=== PATIENT | male | born 1950 | race Caucasian/White ===

== ENCOUNTER 2020-12-10 10:11 | Observation (INO) | payer OTHER, MEDICARE ==
[~2020-12-10] VITALS: Ht 180.3 cm; Wt 114.3 kg
[2020-12-10 11:05] LABS: BASOPHILS ABSOLUTE AUTO 0.03 K/mm3 (0.00-0.23); BASOPHILS PERCENT AUTO 1 % (0-2); EOSINOPHILS PERCENT AUTO 0 % (0-6); Hematocrit 36.4 % (37.0-53.0); Hemoglobin 12.6 g/dL (13.5-17.5); IMMATURE GRAN PERCENT AUTO 3 % (0-1); LYMPHOCYTES ABSOLUTE AUTO 0.62 K/mm3 (0.84-5.20); LYMPHOCYTES PERCENT AUTO 16 % (21-46); MONOCYTES ABSOLUTE AUTO 0.55 K/mm3 (0.16-1.47); MONOCYTES PERCENT AUTO 14 % (4-13); Mean Corpuscular HGB 32.2 pg (26.0-34.0); Mean Corpuscular HGB Conc 34.6 g/dL (31.5-36.5); Mean Corpuscular Volume 93 fL (80-100); Mean Platelet Volume 12.2 fL (9.1-12.4); NEUTROPHILS ABSOLUTE AUTO 2.67 K/mm3 (1.96-9.15); NEUTROPHILS PERCENT AUTO 67 % (41-73); Platelet Count 72 K/mm3 (150-400); RDW Coefficient Variation 11.9 % (11.7-14.2); RDW Standard Deviation 40.6 fL (35.1-46.3); Red Blood Cell Count 3.91 M/mm3 (4.30-5.90); White Blood Cell Count 3.97 K/mm3 (4.00-11.30)
[2020-12-10 11:14] LABS: Alanine Aminotransfer (ALT/SGP 140 U/L (12-78); Albumin, Blood 3.5 g/dL (3.4-5.0); Alk Phos 76 U/L (50-136); Anion Gap 12 mmol/L (6-16); Aspartate Aminotrans (AST/SGOT 119 U/L (12-37); Bilirubin, Total 1.1 mg/dL (0.1-1.0); Blood Urea Nitrogen 43 mg/dL (8-24); CO2, Blood 20 mmol/L (21-32); Calcium, Blood 8.1 mg/dL (8.5-10.1); Chloride, Blood 100 mmol/L (98-108); Creatinine, Blood 2.05 mg/dL (0.60-1.20); Globulin, Blood 3.4 g/dL (2.2-4.0); Glomerular Filtration Rate 34 (60-); Glucose, Blood 160 mg/dL (70-99); Potassium, Blood 4.2 mmol/L (3.5-5.5); Sodium, Blood 132 mmol/L (136-145); Total Protein, Blood 6.9 g/dL (6.4-8.2); Troponin I <0.015 ng/mL (0.000-0.040)
[2020-12-10] MEDS ORDERED: ALOGLIPTIN12.5 M1 PO (13:59)
[2020-12-10] MEDS ORDERED: COMBIVENT RESPIM4 G1 INH (13:59)
[2020-12-10] MEDS ORDERED: ACALABRUTINIB 100 MG PO (13:59)
[2020-12-10] MEDS ORDERED: Vitamin B-121000 MCG PO (14:00)
[2020-12-10] MEDS ORDERED: CHLO25B PO (14:00)
[2020-12-10] MEDS ORDERED: ATEN25 PO (14:00)
[2020-12-10] MEDS ORDERED: INSULANI SC (14:01)
[2020-12-10] MEDS ORDERED: LATA.005SO BOTHEYES (14:01)
[2020-12-10] MEDS ORDERED: ARTIFICIAL TEAR15 M2 BOTHEYES (14:01)
[2020-12-10] MEDS ORDERED: ZESTRIL40 M2 PO (14:02)
[2020-12-10] MEDS ORDERED: DAILY-VITE1 EAC1 PO (14:02)
[2020-12-10] MEDS ORDERED: METF500 PO (14:02)
[2020-12-10] MEDS ORDERED: SIMV10 PO (14:03)
[2020-12-10] MEDS ORDERED: TAMS.4ER PO (14:03)
[2020-12-10] MEDS ORDERED: POTA10T PO (14:03)
[2020-12-10] MEDS ORDERED: ZOLP5 PO (14:04)
--- NOTE | 2020-12-10 19:57 | NUR ---
WAS RESTING QUIETLY WHEN NUIRSE ENTERED ROOM. IVF INFUSING. AWAKENED QUICKLY AND SMILED. RESPS DIMINISHED AND QUICK TO COUGH WHEN ASKED TO TAKE DEEP BREATHS. DENIED LOSS OF FEELING. ENCOURAGED TO USE CALL LIGHT IF NEEDED. CALL LIGHT IN REACH. ISOLATION MAINTAINED
--- NOTE | 2020-12-10 20:53 | NUR ---
STATED HE HAD A BM EARLIER IN THE DAY, BUT HADNT EATEN FOR ABOUT A WEEK. ENSURE PO ENCOURAGED. TOLERATING WELL. ASKED FOR AND RECEIVED "ROOTBEER". CALL LIGHT IN REACH
--- NOTE | 2020-12-11 03:50 | NUR ---
SHIFT SUMMARY PT HAS BEEN RESTING QUIETLY WITH FEW INTERRUPTIONS SINCE HS. IVF OF NS CONTINUES AT 125 ML/HR. AWAKE AND UP TO BR WITH OBSERVATION/ASSIST A FEW TIMES. THE LAST TIME, PT VOICED SEVERE SOB AND USED THE URINAL INSTEAD. REMAINS ALERT. O2 SATS REMAIN IN THE 90'S. SEE VITAL SIGN DOC SHEET. CALL LIGHT IN REACH. ISOLATION PRECAUTIONS MAINTAINED
[2020-12-11 06:01] LABS: BASOPHILS ABSOLUTE AUTO 0.03 K/mm3 (0.00-0.23); BASOPHILS PERCENT AUTO 1 % (0-2); EOSINOPHILS ABSOLUTE AUTO 0.01 K/mm3 (0.00-0.68); EOSINOPHILS PERCENT AUTO 0 % (0-6); Hematocrit 35.3 % (37.0-53.0); IMMATURE GRAN ABSOLUTE AUTO 0.07 K/mm3 (0.00-0.10); IMMATURE GRAN PERCENT AUTO 2 % (0-1); LYMPHOCYTES ABSOLUTE AUTO 0.52 K/mm3 (0.84-5.20); LYMPHOCYTES PERCENT AUTO 17 % (21-46); MONOCYTES ABSOLUTE AUTO 0.37 K/mm3 (0.16-1.47); MONOCYTES PERCENT AUTO 12 % (4-13); Mean Corpuscular HGB 31.5 pg (26.0-34.0); Mean Corpuscular Volume 93 fL (80-100); Mean Platelet Volume 11.9 fL (9.1-12.4); NEUTROPHILS ABSOLUTE AUTO 2.02 K/mm3 (1.96-9.15); NEUTROPHILS PERCENT AUTO 67 % (41-73); Platelet Count 64 K/mm3 (150-400); RDW Standard Deviation 41.1 fL (35.1-46.3); Red Blood Cell Count 3.81 M/mm3 (4.30-5.90); White Blood Cell Count 3.02 K/mm3 (4.00-11.30)
[2020-12-11 06:25] LABS: Albumin, Blood 3.2 g/dL (3.4-5.0); Bilirubin, Total 0.8 mg/dL (0.1-1.0); Bun/Creatinine Ratio 23.6 (12.0-20.0); Calcium, Blood 7.9 mg/dL (8.5-10.1); Creatinine, Blood 1.78 mg/dL (0.60-1.20); Globulin, Blood 3.1 g/dL (2.2-4.0); Potassium, Blood 3.9 mmol/L (3.5-5.5); Total Protein, Blood 6.3 g/dL (6.4-8.2)
[2020-12-11] MEDS ORDERED: DECADRON6 M1 PO (13:20)
--- NOTE | 2020-12-11 13:20 | NUR ---
Patient is lying in bed and alert. Patient tells me about the COVID symptoms and how they "came out of nowhere and knocked him for a loop." He talks about his fears as the virus hit him. He then shares about his rush with Lymphoma and the success of his chemotherapy treatment. I normalize patient's experience and provide therapeutic listening and a calming presence. I will continue to remain available to patietn and family.
--- NOTE | 2020-12-11 16:31 | NUR ---
DOCTOR HAD ORIGINALLY PLANNED TO DISCHARGE THE PATIENT HOME HOWEVER UPON CHECKING THE PATIENTS AFTERNOON VITALS HIS BP WAS NOTED TO BE 75/46. DR CARLOS WAS NOTIFIED AND THEN DR CAN CAME TO ASSESS THE PATIENT AT BEDSIDE; AFTER ASSESSING THE PATIENT DR CAN DECIDED TO HOLD THE PATIENT FOR ANOTHER NIGHT TO MONITOR HIM A LITTLE LONGER. ORDERS ALSO GIVEN TO GIVE THE PATIENT A BOLUS OF 250ML NS; FLUIDS HUNG PER EMAR. ALL OTHER VITALS APPEAR TO BE WNL. PATIENT PLEASANT AND COOPERATIVE WITH STAFF AND CALLS APPROPRIATELY FOR STAFF ASSIST NEEDED. PATIENT CONTINUES TO HAVE MINIMAL APPETITE AND IS NOT EATING OR DRINK MUCH. MUCH ABDOMINAL PAIN EARLIER; MD PRESCRIBED CHEWABLE PEPTO BISMOL WITH EFFECTIVE RESULTS NOTED. PATIENT IS RESTING IN HIS BED AT THIS TIME. CALL LIGHT IS WITHIN REACH.
--- NOTE | 2020-12-11 19:15 | NUR ---
ASSUMED CARE RECEIVED REPORT FROM VAUGHN DOMINIQUE. PT RESTING, IN NO ACUTE DISTRESS. CALL LIGHT, POSSESSIONS IN REACH.
--- NOTE | 2020-12-12 05:02 | NUR ---
WOOD VENEER TAPER SUMMARY PT ASLEEP, IN NO ACUTE DISTRESS. VS REVIEWED,WNL; BP'S STABLE; 02 SATS WNL ON RA. NO ACUTE CHANGES IN CONDITION NOTED OVERNIGHT; SLEPT THROUGHOUT. NO ACUTE NEEDS ASSESSED AT THIS TIME. CALL LIGHT, POSSESSIONS IN REACH, BED IN LOW AND LOCKED POSITION. WILL CONTINUE TO PROVIDE CARE UNTIL REPORT GIVEN TO ONCOMING RN.
[2020-12-12 08:49] LABS: Bun/Creatinine Ratio 24.7 (12.0-20.0); Calcium, Blood 8.2 mg/dL (8.5-10.1); Creatinine, Blood 2.39 mg/dL (0.60-1.20); Potassium, Blood 3.7 mmol/L (3.5-5.5)
--- NOTE | 2020-12-12 13:17 | NUR ---
AGAINST MEDICAL ADVICE PT LEFT AMA, REMAINS ON ROOM AIR BUT IS SOB WITH ANY EXERTION, NON PRODUCTIVE COUGH NOTED. HE IS USING AN INCENTIVE SPIROMETER AT TIMES. RISKS VS BENIFITS OF LEAVING AGAINST MEDICAL ADVICE DISCUSSED WITH PT. IT WAS OFFERED TO GET [facility] DEPARTMENT TO GO HIS HOME AND LOCK THE DOOR. HE REMAINED FIRM IN HIS DECISION TO GO HOME.
== END 2020-12-12 13:14 | disposition left against medical advice (07) ==
LOC: ER 10:11 → MEDS 10:12 → ENPENDDIS 12-11 18:23 → MEDS 12-12 13:14
PROVIDERS: Emergency Medicine; Family Medicine; ADMIT Hospitalist
DX: A41.89 Other specified sepsis (principal); U07.1 COVID-19; N17.9 Acute kidney failure, unspecified; E87.1 Hypo-osmolality and hyponatremia; D72.819 Decreased white blood cell count, unspecified; C85.90 Non-Hodgkin lymphoma, unspecified, unspecified site; R94.5 Abnormal results of liver function studies; N18.9 Chronic kidney disease, unspecified; E11.22 Type 2 diabetes mellitus with diabetic chronic kidney disease; Z79.899 Other long term (current) drug therapy; Z79.84 Long term (current) use of oral hypoglycemic drugs
CPT/HCPCS: 36415; 71045; 78582; 80048; 80053; 82330; 82947; 83880; 84145; 84484; 85025; 85379; 93005; 93010; 93970; 96365; 96366; 96372; 96375; 99285-25; A9270; A9540; G0378; J0456; J0696; J1650; J7030; J7050

== ENCOUNTER 2020-12-13 17:42 | Inpatient (IN) | payer OTHER, MEDICARE ==
[~2020-12-13] VITALS: Ht 180.3 cm; Wt 116.5 kg
[~2020-12-13 17:42] MED LIST: ACALABRUTINIB 100 MG PO; ALOGLIPTIN12.5 M1 PO; ARTIFICIAL TEAR15 M2 BOTHEYES; ATEN25 PO; CHLO25B PO; COMBIVENT RESPIM4 G1 INH; DAILY-VITE1 EAC1 PO; DECADRON6 M1 PO; INSULANI SC; LATA.005SO BOTHEYES; METF500 PO; POTA10T PO; SIMV10 PO; TAMS.4ER PO; Vitamin B-121000 MCG PO; ZESTRIL40 M2 PO; ZOLP5 PO
[2020-12-13 18:28] LABS: BASOPHILS ABSOLUTE AUTO 0.02 K/mm3 (0.00-0.23); BASOPHILS PERCENT AUTO 1 % (0-2); EOSINOPHILS PERCENT AUTO 0 % (0-6); Hematocrit 35.8 % (37.0-53.0); Hemoglobin 12.6 g/dL (13.5-17.5); IMMATURE GRAN ABSOLUTE AUTO 0.09 K/mm3 (0.00-0.10); IMMATURE GRAN PERCENT AUTO 3 % (0-1); LYMPHOCYTES ABSOLUTE AUTO 0.41 K/mm3 (0.84-5.20); LYMPHOCYTES PERCENT AUTO 13 % (21-46); MONOCYTES PERCENT AUTO 9 % (4-13); Mean Corpuscular HGB 31.8 pg (26.0-34.0); Mean Corpuscular HGB Conc 35.2 g/dL (31.5-36.5); Mean Corpuscular Volume 90 fL (80-100); Mean Platelet Volume 11.3 fL (9.1-12.4); NEUTROPHILS PERCENT AUTO 75 % (41-73); Platelet Count 101 K/mm3 (150-400); RDW Standard Deviation 40.4 fL (35.1-46.3); Red Blood Cell Count 3.96 M/mm3 (4.30-5.90); White Blood Cell Count 3.22 K/mm3 (4.00-11.30)
[2020-12-13 18:28] LABS: PCO2 Arterial 22.2 mmHg (35-45); pH Blood Arterial 7.46 (7.35-7.45)
[2020-12-13 18:29] LABS: PO2 Arterial 43.2 mmHg (80-100)
[2020-12-13 18:51] LABS: Bun/Creatinine Ratio 27.1 (12.0-20.0); C-Reactive Protein, High Sens. 34.5 mg/L (0.000-3.000); Calcium, Blood 8.6 mg/dL (8.5-10.1); Creatinine, Blood 2.55 mg/dL (0.60-1.20)
--- NOTE | 2020-12-13 21:00 | NUR ---
ASSUMED CARE PT ARRIVED TO ICU FROM ED AT 2100. HIFLO NC IN PLACE AT 15LPM AND SPO2 IN HIGH 80'S-LOW 90'S. PT SWITCHED TO AIRVO 45LPM 65% FIO2; HOWEVER PT COULD NOT TOLERATE THIS DUE TO BURNING SENSATION IN NARES. PT IS NOW ON CPAP 8/60% WITH SPO2 >95% RESTING COMFORTABLY. URINAL PLACED ON BEDSIDE TABLE WITHIN REACH OF PT AND EDUCATED ON USE OF CALL LIGHT FOR NURSING STAFF HELP EMPTYING IT. PT HAS CELL PHONE AND SMALL BLACK SUITCASE AT BEDSIDE WITH PERSONAL BELONGINGS. PT SON NOTIFIED OF PT BEING ADMITTED TO HOSPITAL. PT IS HYPOTENSIVE WITH SBP IN 80'S-90'S AND MAPS >60. PT IS EASILY SOB WITH CONVERSATION AND NEEDS TIME TO REOXYGENATED BEFORE CONTINUING ON WITH PROLONGED CONVERSATIONS. PT HAS 20G IV IN LT FA INFUSING NS WITH CEFTRIAXONE AND 20G IN LT AC INFUSING AZITHROMYCIN. WILL CONTINUE TO MONITOR PT STATUS.
[2020-12-14 03:37] LABS: BASOPHILS ABSOLUTE AUTO 0.02 K/mm3 (0.00-0.23); BASOPHILS PERCENT AUTO 1 % (0-2); EOSINOPHILS PERCENT AUTO 0 % (0-6); Hematocrit 32.8 % (37.0-53.0); Hemoglobin 11.3 g/dL (13.5-17.5); IMMATURE GRAN ABSOLUTE AUTO 0.23 K/mm3 (0.00-0.10); IMMATURE GRAN PERCENT AUTO 7 % (0-1); LYMPHOCYTES ABSOLUTE AUTO 0.32 K/mm3 (0.84-5.20); LYMPHOCYTES PERCENT AUTO 10 % (21-46); MONOCYTES PERCENT AUTO 9 % (4-13); Mean Corpuscular HGB 31.8 pg (26.0-34.0); Mean Corpuscular HGB Conc 34.5 g/dL (31.5-36.5); Mean Corpuscular Volume 92 fL (80-100); Mean Platelet Volume 11.3 fL (9.1-12.4); NEUTROPHILS ABSOLUTE AUTO 2.49 K/mm3 (1.96-9.15); NEUTROPHILS PERCENT AUTO 74 % (41-73); Platelet Count 92 K/mm3 (150-400); RDW Coefficient Variation 12.2 % (11.7-14.2); RDW Standard Deviation 41.6 fL (35.1-46.3); Red Blood Cell Count 3.55 M/mm3 (4.30-5.90); White Blood Cell Count 3.36 K/mm3 (4.00-11.30)
[2020-12-14 03:51] LABS: Bun/Creatinine Ratio 30.2 (12.0-20.0); Calcium, Blood 7.6 mg/dL (8.5-10.1); Creatinine, Blood 2.15 mg/dL (0.60-1.20); Potassium, Blood 4.2 mmol/L (3.5-5.5)
[2020-12-14 04:15] LABS: BAND PERCENT MAN 4 % (0-8); BASOPHILS PERCENT MAN 0 % (0-2); EOSINOPHILS PERCENT MAN 0 % (0-6); LYMPHOCYTES ABSOLUTE MAN 0.13 K/mm3 (0.84-5.20); LYMPHOCYTES PERCENT MAN 4 % (21-46); MONOCYTES ABSOLUTE MAN 0.23 K/mm3 (0.16-1.47); MONOCYTES PERCENT MAN 7 % (4-13); NEUTROPHILS ABSOLUTE MAN 2.99 K/mm3 (1.96-9.15); SEG NEUTROPHILS PERCENT MAN 85 % (41-73); TOTAL CELLS COUNTED 100
[2020-12-14 04:52] LABS: PCO2 Arterial 29.7 mmHg (35-45); pH Blood Arterial 7.34 (7.35-7.45)
--- NOTE | 2020-12-14 05:36 | NUR ---
END OF SHIFT SUMMARY PT TOLERATED CPAP 8/60% WELL WITH SPO2 >90%, WITH FIO2 DECREASED TO 50% NOW AND SLEPT THROUGHOUT SHIFT. URINAL PLACED AT BEDSIDE, WHICH PT UTILIZED THROUGHOUT THE NIGHT. LUNG SOUNDS WERE CLEAR AND DIM WHILE PT WAS SITTING, BUT ONCE PT LAID SUPINE LUNG SOUNDS BECAME COARSE AND DIM. NONPRODUCTIVE COUGH PRESENT OCCASSIONALLY. PT ABLE TO MAKE NEEDS KNOWN TO STAFF. NS INFUSING AT 100ML/HR INTO 20G LT FA IV; 20G IV IN LT AC SL. PT SON UPDATED THAT PT IS IN ICU AND PT HAS CELL PHONE AT BEDSIDE TO CALL SON HE NEEDS. WILL CONTINUE TO MONITOR UNTIL REPORT GIVEN TO ONCOMING RN.
--- NOTE | 2020-12-14 06:21 | NUR ---
BAR EXAMINER DOCUMENTATION REVIEW I HAVE READ AND AGREE WITH ALL NOTES ENTERED BY FOR THIS SHIFT.
--- NOTE | 2020-12-14 07:45 | NUR ---
ASSUMED CARE BEDSIDE REPORT RECIEVED. PT IS LAYING IN BED AWAKE, ALERT, AND ORIENTED. PT IS VERY HARD OF HEARING. PT ANSWERS QUESTIONS APPROPRIATELY. PT INITIALLY ON BIPAP, THEN SWITCHED TO AIRVO 45L, FIO2 50%. PT DENIES PAIN OR SOB. VITAL SIGNS STABLE AT THIS TIME. IV'S SALINE LOCKED. PT USES URINAL AT BEDSIDE AND REPOSITIONS SELF IN BED INDEPENDENTLY. WILL CONTINUE TO MONITOR.
[2020-12-14 17:39] LABS: Source, Urine Catheter
[2020-12-14 17:43] LABS: Appearance, Urine Clear (Clear); Bilirubin, Urine Neg (Neg); Blood, Urine Neg (Neg); Color, Urine Yellow (P-Yellow); Glucose Qualitative, Urine 3+ (Neg); Ketones, Urine 1+ (Neg); Leukocyte Esterase, Urine Neg (Neg); Nitrite, Urine Neg (Neg); Protein, Urine 2+ (Neg); Urobilinogen, Urine NORM (Normal)
--- NOTE | 2020-12-14 17:44 | NUR ---
SHIFT SUMMARY NO ACUTE CHANGES THIS SHIFT. PT HAS REMAINED AWAKE, ALERT AND ORIENTED THROUGHOUT THE DAY. PT ON AIRVO MOST OF THE SHIFT AT 45L, FIO2 55%. PT ON BIPAP FOR SHORT PERIODS. PT WITH INCREASING DYSPNEA WITH EXERTION DURING THE AFTERNOON. SEO TEMP PROBE PLACED, CLEAR YELLOW OUTPUT NOTED, UA SENT. IV'S REMAIN IN PLACE WITH NS INFUSING TKO. PT TOLERATING MEAL TRAYS WELL. PT REPOSITIONS SELF IN BED INDEPENDENTLY. PT SON UPDATED VIA PHONE. VITAL SIGNS HAVE REMAINED STABLE. WILL CONTINUE TO MONITOR AND REPORT OFF TO ONCOMING RN.
[2020-12-14 17:56] LABS: Bacteria Mod /hpf; Red Blood Cells, Urine Not Seen /hpf (0-2); Squamous Epithelial Cells Not Seen /hpf (Few); White Blood Cells, Urine 0-2 /hpf (0-5)
--- NOTE | 2020-12-14 19:11 | NUR ---
ASSUMED CARE PT LYING IN BED AWAKE AND WATCHING TV. AIRVO IN PLACE AT 45LPM/50% FIO2 WITH SPO2 >90%. NS INFUSING TKO. TEMP SEO IN PLACE. VS STABLE WITH SBP IN 110'S-130'S, HR 70-80'S. WILL CONTINUE TO MONITOR THROUGHOUT SHIFT.
[2020-12-15 03:40] LABS: Bun/Creatinine Ratio 30.7 (12.0-20.0); Calcium, Blood 8.2 mg/dL (8.5-10.1); Creatinine, Blood 1.63 mg/dL (0.60-1.20); Potassium, Blood 4.2 mmol/L (3.5-5.5)
--- NOTE | 2020-12-15 06:22 | NUR ---
END OF SHIFT SUMMARY PT REMAINED ON BIPAP 45L/55% MOST OF THE NIGHT WITH BREAKS TO DRINK WATER. SWITCHED TO AIRVO 45L/60% AT 0600 WITH SPO2 >90%. RR MAINTAINED IN HIGH 20'S-30'S. PT SLEPT WELL THROUGHOUT THE NIGHT AND WAS ABLE TO MAKE NEEDS KNOWN TO STAFF. NO MAJOR CHANGES DURING SHIFT. WILL CONTINUE TO MONITOR UNTIL REPORT GIVEN TO ONCOMING RN.
--- NOTE | 2020-12-15 07:24 | NUR ---
EXTRACTING MACHINE OPERATOR DOCUMENTATION REVIEW I HAVE READ AND AGREE WITH ALL NOTES ENTERED THIS SHIFT FROM .MAYRAB
--- NOTE | 2020-12-15 08:00 | NUR ---
ASSUMED CARE RECEIVED REPORT FROM DIAL MOUNTER RN. PT RESTING COMFORTABLY IN BED AT THIS TIME. A&OX4. AIRVO 45L/60% FIO2, SAT >80%, PT EASILY BECOMES SOB WITH EXERTION. TITRATED FIO2 TO 100% SAT >90% DURING ASSESSMENT, CONVERSATION, AND EATING. WILL TITRATE BACK DOWN PT TOLERATES. IV TO LAC AND L HAND SALINE LOCKED AT THIS TIME. TEMP SEO PATENT AND DRAINING YELLOW CLOUDY URINE TO GRAVITY. ABD SLIGHTLLY DISTENDED AND FIRM, PT STATES HAD SMALL BM LAST NIGHT THOUGH NONE FOR "A FEW DAYS" BEFORE THAT. VS STABLE. WILL CONTINUE TO MONITOR.
--- NOTE | 2020-12-15 08:40 | NUR ---
RT AT BEDSIDE. TITRATED FIO2 DOWN TO 60% AT THIS TIME. DISCUSSED PURSED LIP BREATHING AND OTHER INTERVENTIONS TO INCREASE O2 SAT.
--- NOTE | 2020-12-15 13:32 | NUR ---
called pt son he is coming in will discuss plan of care.
--- NOTE | 2020-12-15 14:05 | NUR ---
PT UP TO CHAIR IN ROOM. STANDBY ASSIST WITH RN AND THIS SRN. VERY DYSPNEIC UPON EXERTION AND CONVERSATION. TOOK A WHILE TO RECOVER AFTER AMBULATING TO THE CHAIR. AIRVO TITRATED TO 55ML/70% FIO2 WITH RT EARLIER, SAT >90% AFTER PROLONGED RECOVERY. WILL CONTINUE TO MONITOR.
--- NOTE | 2020-12-15 15:00 | NUR ---
FAMILY UPDATE PT SON YARI AT BEDSIDE. DISCUSSION STARTED ABOUT GOALS OF CARE AND CODE STATUS. PT AND SON HAVE DECIDED TO CONTINUE WITH CURRENT COURSE OF TREATMENT AT THIS TIME, BUT ARE OPEN TO FURTHER DISCUSSION OF CARE OPTIONS IF PT CONTINUES TO DECLINE. WILL CONTINUE TO MONITOR.
--- NOTE | 2020-12-15 15:11 | NUR ---
SON AT BEDSIDE THIS AFTERNOON. UPDATED TO PLAN OF CARE.
--- NOTE | 2020-12-15 17:12 | NUR ---
SHIFT SUMMARY PT RESTING IN BED COMFORTABLY AT THIS TIME. A&OX4. RT SWITCHED TO BIPAP THIS AFTERNOON, SETTINGS CURRENTLY RR 10, IPAP 10-16, EPAP 9, FIO2 40%, SAT >90%. PT BECOMES DYSPNEIC UPON EXERTION, THEN BECOMES ANXIOUS MAKING DYSPNEA WORSE, SAT <85%. EASILY REDIRECTABLE AND SAT RETURNS TO >90%. PT UP TO RECLINER THIS AFTERNOON, REQUESTED TO GO BACK IN BED. SON AT BEDSIDE THIS AFTERNOON, UPDATED TO PLAN OF CARE AND DISCUSSED CODE STATUS. TEMP SEO PATENT AND DRAINING DARK YELLOW CLOUDY URINE. DIM LUNG SOUNDS, COARSE THIS AFTERNOON THOUGH CLEARS WITH COUGH. NONPRODUCTIVE COUGH. C/O PAIN IN RIGHT UPPER/OUTER THIGH, PT STATES "FEELS LIKE PIN PRICKS", REPOSITIONED AND PLACED ICE PACK ON LEG, APPEARS TO BE IMPROVING. LITTLE APPETITE TODAY. VS STABLE. WILL CONTINUE TO MONITOR.
--- NOTE | 2020-12-15 17:31 | NUR ---
DOCUMENTATION REVIEW ALL ASSESSMENTS AND NOTES FROM THIS SHIFT REVIEWED. I AGREE WITH SWAGE TENDER DOCUMENTATION FROM THIS SHIFT.
--- NOTE | 2020-12-15 17:40 | NUR ---
RT HAS PLACED PT BACK ON HNC AT THIS TIME, 55ML/60% FIO2.
--- NOTE | 2020-12-15 19:28 | NUR ---
report received from lopez ALEXANDRA. PT A&O. PT WATCHING TV ON HIGH-FLOW AIRVO N/C. VITALS NOTED. IV IS KVO. CONTINUE ASSESSMENT AND CARE.
--- NOTE | 2020-12-15 23:34 | NUR ---
RT NOTIFIED-DECREASED SATS ON HF 55L/65%. RT PLACING PT ON BIPAP.
--- NOTE | 2020-12-16 00:28 | NUR ---
ASSESS PT RESTING ON BIPAP. BS REMAIN DECREASED T/O. CONTINUE TO ASSIST PT WITH Q2 TURNS. VITALS NOTED IN FLOWSHEET. CONTINUE ASSESSMENTS AND CARE.
--- NOTE | 2020-12-16 03:09 | NUR ---
ASSESS-PT REQUEST TO REMOVE BIPAP-NOT COMFORTABLE. RT, ALYSA NOTIFIED-PT PLACED BACK ON HF 55L/MIN @ 60%.
--- NOTE | 2020-12-16 04:04 | NUR ---
ASSESS PT ON HF. RESTING COMFORTABLE. DECREASED GRAEME AND INCREASED SOB WITH MOVING/ACTIVIETY. PT TURN TO LEFT SIDE WITH PILLOW SUPPORT. SEO DRAINING CL/YELLOW OUTPUT, 800ML. PIV X 2, S.L. CONTINUE ASSESSMENTS AND CARE.
--- NOTE | 2020-12-16 08:49 | NUR ---
AM NOTE... ASSUMED CARE OF PT AT 0700. PT IS A&Ox4. PT IS COVID + ON HI FLOW AT 55l AND 80% FIO2 WITH O2 SATS >89%. PT WAS ON 55l AND 65% DURING REPORT FROM NOC SHIFT RN BUT PT STARTED TO DESAT AND FIO2 WAS INCREASED TO 80%. PT'S L/S DIM T/O RR 20'S-30'S. BT PRESENT AND HYPOACTIVE, ABD IS SLIGHTLY FIRM AND NONTENDER TO PALP. PT'S SEO IS PATENT AND DRAINING CLEAR YELLOW URINE TO GRAVITY. PT IS IN NSR IN THE 70'S-80'S. PT'S SON YARI CALLED AND WAS GIVEN AN UPDATE. PT'S SON IS ON HIS WAY FROM [facility]. CALL LIGHT IN REACH WILL CONTINUE TO MONITOR.
--- NOTE | 2020-12-16 17:45 | NUR ---
SHIFT SUMMARY... PT SPENT MOST OF THIS SHIFT ON THE AIRVO SETTINGS AT 60l/80%FIO2 WITH O2 SATS >89%, AT 1630 THIS RN WAS ABLE TO TITRATE THE PT DOWN TO 75%FIO2 KEEPING HIS O2 SATS >89%. PT DID NOT HAVE A BM THIS SHIFT. PT'S SEO IS PATENT AND DRAINING DARK YELLOW/OSMAN URINE TO GRAVITY. PT'S SON WAS AT THE BEDSIDE FOR VISITING HOURS. PT WAS C/O OF THE AIRVO "SCREAMING" IN HIS RIGHT EAR, THIS RN DID NOT HEAR ANY LOUD OR HIGH PITCHED NOISES COMING FROM THE AIRVO BUT PROVIDED THE PT WITH AN EAR PLUG AND THE PT FELL ASLEEP SHORTLY AFTER THIS WAS PUT IN. PT'S BP HAS BEEN STABLE T/O SHIFT. L/S CONTINUE TO BE DIM T/O. PT HAS HAD A VERY POOR APPETITE THIS SHIFT EATING MAYBE 5% OF HIS BREAKFAST, NO LUNCH AND ONLY BITES OF HIS DINNER. PT ENCOURAGED TO DRINK THE ENSURE DRINKS ON HIS TRAYS. CALL LIGHT IN REACH WILL CONTINUE TO MONITOR UNTIL REPORT IS GIVEN TO ONCOMING RN.
--- NOTE | 2020-12-16 19:27 | NUR ---
REPORT RECEIVED-CARE ASSUMED. PT ON HF NC 60L/MIN, 65% FIO2. WATCHING TV. A&0X4. SEO IN PLACE, YELLOW OUTPUT DRAINIG. PIVX2-S.L. -CONTINUE CARE, Q2 TURNS WITH PILLOW SUPPORT, CONTINUE ASSESSMENT.
--- NOTE | 2020-12-17 00:07 | NUR ---
ASSESS PT FAMILY STOPPED BY WINDOW TO WAVE HI. PT CHATTED ON PHONE WITH THEM, BUT DOES EAISLY BECOME SOB, AND HAS DECREASED SATS. PT REMAINS ON HF N/C 70% , 60L. NO CHANGES AT THIS TIME. PT REQUESTED SLEEP AID-GIVEN PER SEP- CURRENTLY RESTING. VITALS NOTED ON FLOWSHEET. CONTINUE ASSESSMENT AND CARE.
--- NOTE | 2020-12-17 02:05 | NUR ---
ASSESS DECREASED SATS 86-87% WITH TURN, REMAIN DECREASED APROX 5-10 MIN- INCREASED FIO2 TO 75% ON HF-SATS RETURN TO >90%. CONTINUE TO MONITOR.
--- NOTE | 2020-12-17 03:55 | NUR ---
ASSESS PT WITH INCREASED RR 40'S, DECREASED SATS 85-89%- ON HF 60L, 75%, INCREASED FI02 TO 80%, NOTIFIED RTSATS 90-91%. INCREASED TEMP-101.5-TYLENOL GIVEN PER MAR, BLANKET REMOVED. BS: DECREASED T/O. TURNED PT, PILLOW SUPPORT USED. PT SATS DECREASE WITH ANY ACTIVITY, INCLUDING TALKING. CONTINUE ASSESSMENT AND CARE.
--- NOTE | 2020-12-17 04:45 | NUR ---
ASSESS RT IN ROOM, PT NOW ON BIPAP-AM ABG NOW.
--- NOTE | 2020-12-17 05:03 | NUR ---
NOTIFIED PT REQUIRE MORE RESPIRATORY SUPPORT, INCREASED TEMP-CONTINUE INCREASING POST TYLENOL, SEE FLOWSHEET, INCREASED RR. LABS ORDERED, NOW. CONTINUE ASSESSMENT
--- NOTE | 2020-12-17 05:31 | NUR ---
LABS DONE NOW, WAITING RESULTS.
[2020-12-17 05:35] LABS: BASOPHILS ABSOLUTE AUTO 0.01 K/mm3 (0.00-0.23); BASOPHILS PERCENT AUTO 0 % (0-2); EOSINOPHILS PERCENT AUTO 0 % (0-6); Hematocrit 37.9 % (37.0-53.0); Hemoglobin 12.9 g/dL (13.5-17.5); IMMATURE GRAN ABSOLUTE AUTO 0.23 K/mm3 (0.00-0.10); IMMATURE GRAN PERCENT AUTO 7 % (0-1); LYMPHOCYTES ABSOLUTE AUTO 0.31 K/mm3 (0.84-5.20); LYMPHOCYTES PERCENT AUTO 9 % (21-46); MONOCYTES ABSOLUTE AUTO 0.24 K/mm3 (0.16-1.47); MONOCYTES PERCENT AUTO 7 % (4-13); Mean Corpuscular HGB 31.2 pg (26.0-34.0); Mean Corpuscular Volume 92 fL (80-100); Mean Platelet Volume 10.4 fL (9.1-12.4); NEUTROPHILS ABSOLUTE AUTO 2.54 K/mm3 (1.96-9.15); NEUTROPHILS PERCENT AUTO 76 % (41-73); Platelet Count 118 K/mm3 (150-400); RDW Coefficient Variation 12.2 % (11.7-14.2); RDW Standard Deviation 41.1 fL (35.1-46.3); Red Blood Cell Count 4.13 M/mm3 (4.30-5.90); White Blood Cell Count 3.33 K/mm3 (4.00-11.30)
[2020-12-17 05:53] LABS: Albumin/Globulin Ratio 0.8 (0.8-1.8); Bilirubin, Total 0.7 mg/dL (0.1-1.0); Bun/Creatinine Ratio 28.5 (12.0-20.0); Calcium, Blood 8.7 mg/dL (8.5-10.1); Creatinine, Blood 1.44 mg/dL (0.60-1.20); Globulin, Blood 3.6 g/dL (2.2-4.0); Potassium, Blood 4.2 mmol/L (3.5-5.5); Total Protein, Blood 6.6 g/dL (6.4-8.2)
[2020-12-17 05:57] LABS: BAND PERCENT MAN 1 % (0-8); BASOPHILS PERCENT MAN 0 % (0-2); EOSINOPHILS PERCENT MAN 0 % (0-6); LYMPHOCYTES ABSOLUTE MAN 0.19 K/mm3 (0.84-5.20); LYMPHOCYTES PERCENT MAN 6 % (21-46); MONOCYTES ABSOLUTE MAN 0.16 K/mm3 (0.16-1.47); MONOCYTES PERCENT MAN 5 % (4-13); NEUTROPHILS ABSOLUTE MAN 2.96 K/mm3 (1.96-9.15); SEG NEUTROPHILS PERCENT MAN 88 % (41-73); TOTAL CELLS COUNTED 100
--- NOTE | 2020-12-17 06:18 | NUR ---
PT REMOVED BIPAP-RN TO ROOM- PT DESAT, 60%, PLACED BACK ON BIPAP 100%-RT CALLED .PT RECOVERING, WITH SATS RETURNING TO >90%. RT IN ROOM. BS: DECREASED WIHT SCATTERED FINE CRACKLES T/O. PT'S TEMP CONTINUES TO INCREASE, FAN ON, BLANKETS ALL REMOVED. PT SHIVERING. STATES HE IS COLD. VITALS NOTED ON FLOWSHEET.
--- NOTE | 2020-12-17 06:45 | NUR ---
MD NOTIFICATION- DR. ROSAS. PT CONTINUES TO HAVE FEVER POST MEDS PER SEP, NOW 102.7. MD ORDER GIVE ADDITIONAL DOSE OF TYLENOL NOW, AND START COOLING BLANKET. CERTIFIED CONTROL SYSTEMS TECHNICIAN AWARE.
[2020-12-17 06:46] LABS: PCO2 Arterial 25.6 mmHg (35-45); pH Blood Arterial 7.45 (7.35-7.45)
[2020-12-17 06:47] LABS: PO2 Arterial 83.9 mmHg (80-100)
--- NOTE | 2020-12-17 07:30 | NUR ---
IN ROOM WITH , PT ON BIPAP 15/8 75% OXYGENATING WELL, SATS >95%. PT WITH DIMINISHED BREATH SOUNDS, TENDER ABDOMEN, LARGELY DISTENDED, SEO TO GRAVITY DRAINAGE WITH CLEAR YELLOW RETURN. SKIN COOL/DRY, PULSES PALPABLE IN ALL AREAS. SL IN LEFT HAND AND A/C, PATENT. PT VERY MUCH WANTS TO USE BSC DOESN'T WANT TO USE BEDPAN. REAL ESTATE LISTING CONSULTANT MEKA IN TO ASSIST PATIENT TO BSC. GOOD STRENGTH STILL JUST VERY SHORT OF BREATH WITH ANY MOVEMENT. TAKING SIPS OF WATER WELL.
--- NOTE | 2020-12-17 09:50 | NUR ---
PT CALLING, SAYS HIS CALL LIGHT ISN'T WORKING. SAYS HE HEARS HUMMING IN HIS EAR, SO HE HAS AN EARPLUG IN, SAYS THE MASK ISN'T WORKING, JUST ACTING VERY FRUSTRATED. PT OFFERED PAIN MEDICATION TO HELP, STATES HIS BACK AND ABDOMEN ARE VERY UNCOMFORTABLE. JUST SPOKE WITH SON AND HE SAID HE DOES GET ANXIOUS PRETTY EASILY, WILL TRY TO SEE ABOUT AN ANXIOLYTIC.
--- NOTE | 2020-12-17 18:08 | NUR ---
SUHA HAS BEEN IN BETTER SPIRITS THIS AFTERNOON, LAUGHING WITH THIS RN A FEW TIMES. HE CONTINUES ON THE BIPAP 15 75%, SATS >98%. RESTING EASIER AND LESS ANXIOUS. ABDOMEN STILL LARGE AND DISTENDED, HAD THE SMALL BM THIS AM ON THE BSC, TOOK IN SOME WATER AND HAD A COUPLE OF BITES OF JELLO. HE DOES HELP WITH REPOSITIONING, PILLOWS PLACED UNDER HIS SIDE. SON WAS HERE FOR A FEW MINUTES EARLIER TODAY. PT'S TEMP HAS RETURNED TO NORMAL, PT NOW UNDER COVERS.
--- NOTE | 2020-12-17 19:12 | NUR ---
ASSUMPTION OF CARE RECEIVED REPORT FROM SÁNCHEZ MENDES. ASSUMED CARE OF PATIENT. PATIENT IN BED WITH BIPAP IN PLACE, SETTINGS 15/8 75% FIO2, 02 SATS ABOVE95%. PATIENT WITH EYES CLOSED, NO S/S OF DISTRESS. VITALS STABLE. REVIEWED ORDERS AND WILL TREAT PRESCRIBED.
--- NOTE | 2020-12-18 | NUR ---
REASSESSMENT NO ACUTE CHANGES FROM PREVIOUS ASSESSMENT. BIPAP 15/8, FIO2 65%. PATIENT RESTING, EASILY AWAKENS. RR 20-30'S. ORAL CARE PROVIDED, PATIENT TOLERATES A COUPLE MINUTE BREAK OFF BIPAP BEFORE DESATING QUICKLY TO THE 70'S. RECOVERS QUICKLY WITHIN SECONDS WHEN BIPAP IS REPLACED. VITALS REMAIN STABLE. CALL LIGHT IN REACH.
--- NOTE | 2020-12-18 01:45 | NUR ---
UPDATE PATIENT WANTING WATER AND MULTIPLE BREAKS OFF BIPAP WITHIN A SHORT AMOUNT OF TIME. EACH TIME PATIENT DESATS FASTER AND TAKES LONGER TO RECOVER WHEN PLACED BACK ON BIPAP. WHILE OFF BIPAP, PATIENT'S RESPIRATIONS INCREASE, PATIENT BEGINS COUGHING AND DESATS TO THE 70'S. EXPLAINED TO PATIENT THAT HE IS NOT TOLERATING BEING OFF THE BIPAP MASK THIS OFTEN AND WE NEED TO WAIT LONGER IN BETWEEN BREAKS. PATIENT NODDED HEAD, HIGH RESP RATE WHILE TRYING TO RECOVER SATS. DECLINED TO MOVE POSITIONS AT THIS TIME. WILL CONTINUE TO MONITOR WITH CALL LIGHT IN REACH.
--- NOTE | 2020-12-18 03:59 | NUR ---
INTUBATION AT 0245 PATIENT ALARMING BIPAP, YELLING HELP. RN ENTERED ROOM, PATIENT VERY ANXIOUS STATING HE WANTED TO TAKE OFF HIS BIPAP BUT COULDN'T FOR A DRINK OF WATER. RESPIRATIONS IN THE 40'S AND 02 SATS DECREASING, PATIENT STATING HE FELT ANXIOUS AND AGREED TO ATIVAN AFTER EDUCATION PROVIDED OF ITS PURPOSE. ATIVAN GIVEN CHARTED AT 0258. PATIENT WAS ORIENTED AND TOLERATING BIPAP, RESP STABILIZING. WITHIN A FEW MINUTES BIPAP WAS ALARMING AGAIN, RN ENTERED ROOM TO FIND PATIENT REMOVING BIPAP, RESPIRATIONS IN THE 40 WITH SATS DROPPING TO 70'S. PATIENT SHAKING, VERBAL REASSURANCE PROVIDED, FENTANYL GIVEN CHARTED FOR STATING PAIN IN HIS HIPS. 2 RNS AT BEDSIDE WITH ORIENTOR CALLING DR. ROSAS. AT 0327 PATIENT THRASHING IN BED, INCREASED RESP DISTRESS, DR. ROSAS TO BEDSIDE TO ASSESS PATIENT AND CALLED ED PHYSICIAN. PATIENT WAS ASKED IF HE WANTED A TUBE PLACED DOWN HIS THROAT TO HELP HIM BREATH PATIENT NODDED HEAD YES. ETOM 10MG GIVEN AT 0334, SUCC 200MG AT 0334, PATIENT INTUBATED AT 0335 WITH SIZE 8.0, 26 AT THE GUMS. AFTER INTUBATION PATIENT BECAME TACHYCARDIC IN THE 140'S AND HYPERENSIVE. DR. ROSAS NOTIFIED AND NEW ORDERS WERE RECEIVED. SEDATION WAS INITIATED, OG PLACED AND VERIFIED PER CXR, PLACED TO SUCTION WITH IMMEDIATE LIGHT BROWN LIQUID DRAINAGE. LASIX GIVEN CHARTED. WILL CONTINUE TO MONITOR AND TREAT PRESCRIBED.
[2020-12-18 05:12] LABS: BASOPHILS ABSOLUTE AUTO 0.02 K/mm3 (0.00-0.23); BASOPHILS PERCENT AUTO 0 % (0-2); EOSINOPHILS PERCENT AUTO 0 % (0-6); Hematocrit 39.8 % (37.0-53.0); Hemoglobin 13.4 g/dL (13.5-17.5); IMMATURE GRAN ABSOLUTE AUTO 0.29 K/mm3 (0.00-0.10); IMMATURE GRAN PERCENT AUTO 5 % (0-1); LYMPHOCYTES ABSOLUTE AUTO 0.28 K/mm3 (0.84-5.20); LYMPHOCYTES PERCENT AUTO 5 % (21-46); MONOCYTES ABSOLUTE AUTO 0.36 K/mm3 (0.16-1.47); MONOCYTES PERCENT AUTO 6 % (4-13); Mean Corpuscular HGB 31.4 pg (26.0-34.0); Mean Corpuscular HGB Conc 33.7 g/dL (31.5-36.5); Mean Corpuscular Volume 93 fL (80-100); Mean Platelet Volume 10.9 fL (9.1-12.4); NEUTROPHILS ABSOLUTE AUTO 4.66 K/mm3 (1.96-9.15); NEUTROPHILS PERCENT AUTO 83 % (41-73); Platelet Count 143 K/mm3 (150-400); RDW Coefficient Variation 12.5 % (11.7-14.2); Red Blood Cell Count 4.27 M/mm3 (4.30-5.90); White Blood Cell Count 5.61 K/mm3 (4.00-11.30)
[2020-12-18 05:33] LABS: PCO2 Arterial 28.3 mmHg (35-45); PO2 Arterial 313 mmHg (80-100); pH Blood Arterial 7.32 (7.35-7.45)
--- NOTE | 2020-12-18 05:45 | NUR ---
OG TUBE OG TUBE PULLED BACK PER CHEST XRAY.
[2020-12-18 05:50] LABS: Albumin/Globulin Ratio 0.8 (0.8-1.8); Bilirubin, Total 0.8 mg/dL (0.1-1.0); Bun/Creatinine Ratio 27.2 (12.0-20.0); Calcium, Blood 8.7 mg/dL (8.5-10.1); Creatinine, Blood 1.91 mg/dL (0.60-1.20); Globulin, Blood 3.7 g/dL (2.2-4.0); Potassium, Blood 4.9 mmol/L (3.5-5.5); Total Protein, Blood 6.7 g/dL (6.4-8.2)
--- NOTE | 2020-12-18 05:52 | NUR ---
SHIFT SUMMARY PATIENT STARTED SHIFT ON BIPAP, TOLERATING WELL. RESTING WITH INTERMITTENT BREAKS FOR WATER. PATIENT WITH EPISODE OF ANXIETY WHICH LEAD TO INCREASED RESPIRATIONS AND DECREASED 02 SATS. PATIENT UNABLE TO RECOVER EVEN AFTER ATIVAN WAS GIVEN. PATIENT WAS INTUBATED CHARTED, INITIALLY REQUIRING HIGH DOSE OF SEDATION. BLOOD PRESSURE LOW AFTER INTUBATION AND LEVOPHED WAS STARTED. CONTINUED TO INCREASE PROPOFOL AND LEVOPHED TO MAINTAIN A SAS OF 3 AND A MAP ABOVE 65. CURRENTLY PROPOFOL IS AT 55MCG/KG AND LEVOPHED IS AT 9MCG/MIN. PER ABG RESULTS FIO2 WAS DECREASED TO 45% WITH SATS MAINTAINED AT 95%. VENT SETTINGS ARE AC18/500/10/45%. SEO CATHETER WITH NO OUTPUT AFTER LASIX WAS GIVEN. OG REMAINS TO LIS WITH OUTPUT CONTINUING. MESSAGE LEFT WITH CUCO YARI, AWAITING A RETURN CALL TO INFORM AND UPDATE FAMILY OF ACUTE CHANGES WITH PATIENT. PATIENT FEBRILE AFTER INTUBATION, MEDICATED WITH TYLENOL, REMOVED BLANKETS AND GOWN, FAN PLACED. TEMPERATURE IS SLOWLY DECREASING WITH CONTINUOUS READING VIA SEO CATHETER. WILL CONTINUE TO MONITOR AND REPORT TO ONCOMING RN.
--- NOTE | 2020-12-18 07:15 | NUR ---
ASSUMED CARE PT INTUBATED AND SEDATED AT THIS TIME. VENT SETTINGS AC 18/TV 500/PEEP 10/FIO2 45%, SAT >90%. SEDATED WITH PROPOFOL AT 55MCG/KG/MIN. VS STABLE, LEVOPHED AT 10MCG/MIN, SBP 90'S-100'S. HR 120'S-130'S. OGT TO LIS, ABDOMEN DISTENDED AND FIRM. IV TO LAC AND L HAND INFUSING. UNABLE TO FOLLOW COMMANDS, MOVES ALL EXTREMITIES SPONTANEOUSLY, RESPONDS TO PAINFUL STIMULI. PERRLA. TEMP SEO PATENT AND DRAINING DARK YELLOW CLOUDY URINE TO GRAVITY. UA COLLECTED AND SENT TO LAB. WILL CONTIUE TO MONITOR
[2020-12-18 09:51] LABS: Source, Urine Catheter
[2020-12-18 09:54] LABS: Appearance, Urine Cloudy (Clear); Bilirubin, Urine Neg (Neg); Blood, Urine 4+ (Neg); Color, Urine Yellow (P-Yellow); Glucose Qualitative, Urine Neg (Neg); Ketones, Urine Neg (Neg); Leukocyte Esterase, Urine Neg (Neg); Nitrite, Urine Neg (Neg); Protein, Urine 2+ (Neg); Urobilinogen, Urine NORM (Normal)
[2020-12-18 10:08] LABS: Amorphous Mod (0-Heavy); Bacteria Few /hpf; Squamous Epithelial Cells Few /hpf (Few); Uric Acid Crystals Many /hpf
--- NOTE | 2020-12-18 14:13 | NUR ---
AFTER REPOSITIONING PT WENT INTO A COUGHING FIT, SAT <85%. TITRATED FIO2 TO 40% AND PROPOFOL TO 65MCG/KG/MIN. PT RECOVERING AT THIS TIME, SAT >90%.
--- NOTE | 2020-12-18 17:52 | NUR ---
SHIFT SUMMARY PT REMAINS INTUBATED AND SEDATED AT THIS TIME. VENT SETTINGS TITRATED TO AC 18/TV 500/PEEP 10/FIO2 40%. PICC TO MYRIAM PLACED DURING SHIFT, INFUSING PROPOFOL 55 MCG/KG/MIN, PRECEDEX 0.5 MCG/MIN, LEVOPHED 4 MCG/MIN, AND NS TKO. IV TO LAC INFUSING LR AT 100 ML/HR. IV TO L HAND SALINE LOCKED. OGT INFUSING TF, STARTED TODAY AT 20ML/HR GOAL RATE. PT MOVES ALL EXTREMITIES SPONTANEOUSLY, DOES NOT OBEY COMMANDS. TEMP SEO CATH PATENT AND DRAINING DARK YELLOW URINE TO GRAVITY. PT GOES INTO COUGHING FITS WITH ANY NURSING CARE, STARTED PRECEDEX AND MEDICATED WITH FENTANYL, ATIVAN, AND ROBITUSSIN PER SEP. VS STABLE. FAMILY UPDATED TO PLAN OF CARE. WILL CONTINUE TO MONITOR.
--- NOTE | 2020-12-18 19:08 | NUR ---
ASSUMPTION OF CARE RECEIVED REPORT FROM IBRAHIMA MENDES. ASSUMED CARE OF PATIENT. PATIENT INTUBATED, VENT SETTINGS AC18/500/10/40%, 02 SATS AT 93%. SEDATED WITH PROPOFOL OF 55MCG/KG/HR AND PRECEDEX 0.5MCG/KG/HR. LEVOPHED INFUSING AT 4MCG, BLOOD PRESSURE CURRENTLY 154/81 WITH A MAP OF 114, WILL DECREASE TO 3MCG/MIN. TF VITAL HP INFUSING AT 20ML/HR. SEO PATENT AND DRAINING CLEAR, YELLOW URINE. PICC LINE TO FELICITY WNL. WILL REVIEW ORDERS AND TREAT PRESCRIBED.
--- NOTE | 2020-12-18 23:58 | NUR ---
REASSESSMENT NO ACUTE CHANGES FROM PREVIOUS ASSESSMENT. VENT SETTINGS AC 18/500/10/40% WITH O2 SATS 96%. LEVOPHED AT 1MCG/MIN, PROPOFOL AT 55MCG/KG, PRECEDEX AT 0.5 MCG/KG. TF AT 20ML/HR WITH RESIDUALS OF 120CC REFED. SEO WITH CLEAR, YELLOW URINE OUTPUT. REPOSITIONED, ORAL CARE PROVIDED, ANTIBIOTICS INFUSING CHARTED. TREATED CBG WITH ORDERED S/S. WILL CONTINUE TO MONITOR.
[2020-12-19 04:08] LABS: BASOPHILS ABSOLUTE AUTO 0.01 K/mm3 (0.00-0.23); BASOPHILS PERCENT AUTO 0 % (0-2); EOSINOPHILS ABSOLUTE AUTO 0.01 K/mm3 (0.00-0.68); EOSINOPHILS PERCENT AUTO 0 % (0-6); Hematocrit 35.5 % (37.0-53.0); Hemoglobin 12.2 g/dL (13.5-17.5); IMMATURE GRAN ABSOLUTE AUTO 0.38 K/mm3 (0.00-0.10); IMMATURE GRAN PERCENT AUTO 10 % (0-1); LYMPHOCYTES ABSOLUTE AUTO 0.13 K/mm3 (0.84-5.20); LYMPHOCYTES PERCENT AUTO 3 % (21-46); MONOCYTES ABSOLUTE AUTO 0.11 K/mm3 (0.16-1.47); MONOCYTES PERCENT AUTO 3 % (4-13); Mean Corpuscular HGB 31.8 pg (26.0-34.0); Mean Corpuscular HGB Conc 34.4 g/dL (31.5-36.5); Mean Corpuscular Volume 92 fL (80-100); Mean Platelet Volume 11.2 fL (9.1-12.4); NEUTROPHILS ABSOLUTE AUTO 3.23 K/mm3 (1.96-9.15); NEUTROPHILS PERCENT AUTO 83 % (41-73); Platelet Count 107 K/mm3 (150-400); RDW Coefficient Variation 12.6 % (11.7-14.2); RDW Standard Deviation 42.8 fL (35.1-46.3); Red Blood Cell Count 3.84 M/mm3 (4.30-5.90); White Blood Cell Count 3.87 K/mm3 (4.00-11.30)
[2020-12-19 04:25] LABS: Albumin, Blood 2.5 g/dL (3.4-5.0); Albumin/Globulin Ratio 0.7 (0.8-1.8); Bilirubin, Total 0.8 mg/dL (0.1-1.0); Bun/Creatinine Ratio 29.8 (12.0-20.0); Calcium, Blood 8.4 mg/dL (8.5-10.1); Creatinine, Blood 1.51 mg/dL (0.60-1.20); Globulin, Blood 3.4 g/dL (2.2-4.0); Magnesium, Blood 2.3 mg/dL (1.6-2.4); Phosphorus, Blood 3.6 mg/dL (2.5-4.9); Potassium, Blood 5.3 mmol/L (3.5-5.5); Total Protein, Blood 5.9 g/dL (6.4-8.2)
[2020-12-19 04:26] LABS: BAND PERCENT MAN 3 % (0-8); BASOPHILS PERCENT MAN 0 % (0-2); EOSINOPHILS PERCENT MAN 0 % (0-6); LYMPHOCYTES ABSOLUTE MAN 0.23 K/mm3 (0.84-5.20); LYMPHOCYTES PERCENT MAN 6 % (21-46); MONOCYTES ABSOLUTE MAN 0.07 K/mm3 (0.16-1.47); MONOCYTES PERCENT MAN 2 % (4-13); NEUTROPHILS ABSOLUTE MAN 3.56 K/mm3 (1.96-9.15); SEG NEUTROPHILS PERCENT MAN 89 % (41-73); TOTAL CELLS COUNTED 100
--- NOTE | 2020-12-19 06:39 | NUR ---
SHIFT SUMMARY PATIENT REMAINED INTUBATED AND SEDATED THROUGH NIGHT. VENT SETTINGS UNCHANGED WITH FIO2 40%, SATS ABOVE 90%. FREQUENTLY COUGHS WHEN STIMULATED, BECOMES TACHYCARDIC AND DROPS O2 SATS TO LOW 80'S DURING THESE EPISODES. SCANT, CLEAR SPUTUM SUCTIONED. BLOOD PRESSURE LABILE, LEVOPHED AT 1MCG/MIN, B/P WILL CLIMB AND BECOME HYPERTENSIVE. WHEN LEVOPHED IS TURNED OFF, B/P BECOMES LOW WITH MAP BELOW 60'S. LEVOPHED CURRENTLY AT 0.5MCG/MIN WITH B/P MAINTAINING. LABS REVIEWED, GLUCOSE COVERED. WILL REPORT TO ONCOMING RN.
--- NOTE | 2020-12-19 10:15 | NUR ---
Spoke to son Returned phone call to Erasmo akers, and updated on current patient status. Son states pt has chronic back pain and to medicate during care. Updated on current sedation medications being used and vent. All questions answered.
--- NOTE | 2020-12-19 10:30 | NUR ---
Care Assumed 0700 Pt intubated and sedated. Propofol GTT 55 mcg/kg/min when care assumed and Precedex 0.5 mcg/kg/hr.LR at 100 ml/hr and levophed 0.5 mcg/min, infusing via PICC in [facility]. Propofol titerated to 50 mcg/kg/min due to pt being unresponsive to noxious stimuli but per RT pt coughed during ETT suctioning. No gap present during morning assessemnt. Vent settings AC 18/500/10/40%, SPO2 > 90%. NSR. Temp andrade in place, afebrile, clear yellow urine. VHP at goal of 20 ml/hr, residual of 200, BT hypoactive and abd distended/firm. VSS.
--- NOTE | 2020-12-19 11:00 | NUR ---
Provider visit Dr. Benito in to see patient and new orders recieved to change LR to TKO. Provider updated on blood cultures being positive earlier in the morning, new orders per emar.
--- NOTE | 2020-12-19 11:32 | NUR ---
Spoke to patient brother Pt brother, Lloyd called and updated on current pt status. All questions answered.
--- NOTE | 2020-12-19 18:20 | NUR ---
Shift Summary Pt intubated and sedated. Vent settings unchanged and Propofol GTT 50 mcg/kg/min and Precedex 0.5 mcg/kg/hr. Norepinephrine remains off. Pt responds to noxious stimuli. VHP at goal (20ml/hr). Temp andrade in place, T-max, 100.2. VSS. NSR. Pt had one episode of coughing with SPO2 decreasing to 78% and recovering slowly once FIO2 100% for 30 seconds. Pts abd is distended and tympanic, Dr. Benito aware. SWB in place. Will reprot to oncoming shift.
[2020-12-20 03:45] LABS: BASOPHILS ABSOLUTE AUTO 0.01 K/mm3 (0.00-0.23); BASOPHILS PERCENT AUTO 0 % (0-2); Hematocrit 35.1 % (37.0-53.0); Hemoglobin 12.1 g/dL (13.5-17.5); Mean Corpuscular HGB Conc 34.5 g/dL (31.5-36.5); Mean Corpuscular Volume 93 fL (80-100); Mean Platelet Volume 11.5 fL (9.1-12.4); Platelet Count 99 K/mm3 (150-400); RDW Coefficient Variation 12.4 % (11.7-14.2); RDW Standard Deviation 42.7 fL (35.1-46.3); Red Blood Cell Count 3.78 M/mm3 (4.30-5.90); White Blood Cell Count 3.62 K/mm3 (4.00-11.30)
[2020-12-20 03:49] LABS: EOSINOPHILS ABSOLUTE AUTO 0.15 K/mm3 (0.00-0.68); EOSINOPHILS PERCENT AUTO 4 % (0-6); IMMATURE GRAN ABSOLUTE AUTO 0.32 K/mm3 (0.00-0.10); IMMATURE GRAN PERCENT AUTO 9 % (0-1); LYMPHOCYTES ABSOLUTE AUTO 0.19 K/mm3 (0.84-5.20); LYMPHOCYTES PERCENT AUTO 5 % (21-46); MONOCYTES ABSOLUTE AUTO 0.13 K/mm3 (0.16-1.47); MONOCYTES PERCENT AUTO 4 % (4-13); NEUTROPHILS ABSOLUTE AUTO 2.82 K/mm3 (1.96-9.15); NEUTROPHILS PERCENT AUTO 78 % (41-73)
[2020-12-20 03:59] LABS: Magnesium, Blood 2.1 mg/dL (1.6-2.4)
[2020-12-20 04:00] LABS: Anion Gap 9 mmol/L (6-16); Blood Urea Nitrogen 46 mg/dL (8-24); Bun/Creatinine Ratio 37.1 (12.0-20.0); CO2, Blood 20 mmol/L (21-32); Calcium, Blood 8.2 mg/dL (8.5-10.1); Chloride, Blood 106 mmol/L (98-108); Creatinine, Blood 1.24 mg/dL (0.60-1.20); Glomerular Filtration Rate >60 (60-); Glucose, Blood 303 mg/dL (70-99); Phosphorus, Blood 3.2 mg/dL (2.5-4.9); Potassium, Blood 4.9 mmol/L (3.5-5.5); Sodium, Blood 135 mmol/L (136-145)
--- NOTE | 2020-12-20 07:09 | NUR ---
SHIFT SUMMARY NO ACUTE CHANGES OVERNIGHT. ATTEMPTED 2 SHORT SEDATION VACATIONS, TURNED PROPOFOL DOWN TO 40 MCG/KG/MIN FROM 50 AT START OF SHIFT, PT STARTED COUGHING HEAVILY, DESATURATED QUICKLY TO 70%, INCREASED SEDATION, MUCH THE SAME SECOND TIME, INCREASED PROPOFOL TO 55 MCG/KG/MIN AND PRECEDEX TO 0.6 MCG/KG/HR. TOLERATING TUBE FEEDS, NO BOWEL MOVEMENT TONIGHT. ASSESSMENT IS CHARTED. VSS. WILL CONTINUE TO MONITOR.
--- NOTE | 2020-12-20 08:28 | NUR ---
CARE ASSUMED 0700 PT INTUBATED AND SEDATED. VENT SETTINGS: AC 18/500/10/40%. Propofol GTT 50 MCG/KG/MIN and precedex 0.5 mcg/kg/hr. Pt responds to noxious stimuli during oral care, cough present, small white secreations from ETT, clear/dim lung sounds. MAP > 65, HR 60'S, NSR, AND TEMP 99.5 from temp andrade. Andrade with 300 ml of yellow sedimented urine. vhp at goal, abd firm and distended. SWB In place.
--- NOTE | 2020-12-20 11:11 | NUR ---
Update- Provider Visit Dr. Christie at bedside, Vent setting changes: PEEP increased to 12 at 1045. Pt tolerating well. Spoke to provider about sonErasmo who would like an update. Will call son again to update. Dr. Christie would like son to know that it may take up to 2 weeks for COVID patients to heal. Dr. Christie would like us to wait on doing sedation vacation today due to pt not tolerating it well last night. Spoke to dietitian about starting pt on tube feed with lower glucose, Per Dr. Noe. Dietitian states VHP is lowest and goal decreased to 15 ml/hr. Pt abd continues to be distended. Will give Dulcolax.
--- NOTE | 2020-12-20 11:45 | NUR ---
Family called Spoke to Erasmo, patients son and updated on pts current status. Relayed Dr. Montgomery message about pt recovery taking up to two weeks. All questions answered.
--- NOTE | 2020-12-20 13:03 | NUR ---
UPDATE- Vent settings AC 18/500/12/40%, SPO2 > 90%, LUNG SOUNDS CLEAR. PROPOFOL GTT 50 MCG/KG/MIN AND PRECEDEX GTT 0.5 MCG/KG/HR. PT RESPONDS TO NOXIOUS STIMULI. VHP AT GOAL OF 15 ML/HR, RESIDUAL OF 80 (SAME THING MORNING). TEMP OF 100.8. SPOKE TO PATIENT BROTHER MANOHAR VIA PHONE AND UPDATED ON PT STATUS. ALL QUESTIONS ANSWERED. NSR. VSS. PT TOLERATING TURNS WELL.
--- NOTE | 2020-12-20 16:04 | NUR ---
FIO2 INCREASED Pts FIO2 increased to 50%, AC 18/500/12/50%. Pt given Dulcolax suppository after which time he started to destat to 85%. Pt did not cough but RR increased to low 30's. BP stable. ZAKIA Reyna made aware.
--- NOTE | 2020-12-20 18:10 | NUR ---
Shift Summary Vent settings AC 18/500/12/50%, SPO2 > 90% since changes made. Propofol GTT 50 MCG/KG/MIN and Precedex 0.5 MCG/KG/HR. Pt responds to noxious stumli. VHP at goal of 15 ml/hr, abd continues to be distended. Temp andrade in place, T-max 101.1, dark yellow sedimented urine. VSS. NSR. Per Dr. Christie no sedation vacation during nigthshift.
--- NOTE | 2020-12-20 21:35 | NUR ---
ASSUMED CARE AT 1900 PT LAYING IN BED INTUBATED WITH VENT SETTINGS AC 18, TV 500, PEEP 12, FIO2 50%. PT MINIMALLY REACTIVE TO STIMULI, GAG AND COUGH WEAK, PLANTAR REFLEXES NEGATIVE, PROPOFOL DECREASED TO 45MCG/KG/MIN; PRECEDEX INFUSING AT 0.5MCG/KG/HR. TEMP 100.9. HR 60'S. SBP 115-125. ABD SEVERELY DISTENDED AND FIRM, BOWEL TONES WNL. VHP INFUSING VIA OG AT 15ML/HR (GOAL) WITH 30ML WATER FLUSHES Q4HR; MINIMAL RESIDUALS NOTED. SEO IN PLACE AND DRAINING YELLOW URINE WITH SEDIMENT. SEE SHIFT ASSESSMENT FOR FULL ASSESSMENT.
--- NOTE | 2020-12-21 06:47 | NUR ---
END OF SHIFT SUMMARY PT CONT TO BE INTUBATED WITH VENT SETTINGS AC 18, TV 500, PEEP 12, FIO2 50%; SCANT AMOUNT OF SECREATIONS NOTED; ONE EPISODE OF COUGHING SPELL OCCURED, SPO2 STAYED >90% BUT RR IN 40'S; PROPOFOL INCREASED TO 60MCG/KG/MIN; PRECEDEX INFUSING AT 0.6MCG/KG/HR; INTERVENTIONS HELPFUL. MAX TEMP 102; PRN TYLENOL GIVEN. HR 60-70'S. SBP 100-120. VHP INFUSING VIA OG AT 15ML/HR (GOAL) WITH 30ML WATER FLUSHES Q4HR; ABD BECAME MORE SOFT T/O SHIFT. SEO PATENT AND DRAINING TO GRAVITY. PICC TO MYRIAM INFUSING. REPORT GIVEN TO DEMAR MENDES.
--- NOTE | 2020-12-21 07:21 | NUR ---
CARE ASSUMED 0700 Pt intubated and sedated. Propofol 55 mcg/kg/min and pRecedex 0.6 mcg/kg/hr when care assumed, titerated Propofol 40 mcg/kg/min and precedex 0.5 mcg/kg/hr. Pt hypotensive when care assumed MAP low 60-57. MAP > 65 after decreasing sedation. Vent settings 18/500/12/50%, SPO > 95%, cough and gag present. Pt responds to noxious stimuli. NSR. HR 70'S. VHP at goal of 15 ml/hr. TEmp andrade with yellow/sedmient urine. Temp of 102.4, will treat per emar. Fan in place. SWB.
--- NOTE | 2020-12-21 07:41 | NUR ---
FIO2 DECREASED TO 40% SPO2 100%. Propofol GTT 45 Mcg/kg/min, Pt grimacing and coughing during oral care. Tears in eyes. Will treat per emar.
[2020-12-21 11:17] LABS: BASOPHILS PERCENT AUTO 0 % (0-2); EOSINOPHILS ABSOLUTE AUTO 0.16 K/mm3 (0.00-0.68); EOSINOPHILS PERCENT AUTO 4 % (0-6); Hematocrit 30.8 % (37.0-53.0); Hemoglobin 11.4 g/dL (13.5-17.5); IMMATURE GRAN ABSOLUTE AUTO 0.09 K/mm3 (0.00-0.10); IMMATURE GRAN PERCENT AUTO 2 % (0-1); LYMPHOCYTES ABSOLUTE AUTO 0.11 K/mm3 (0.84-5.20); LYMPHOCYTES PERCENT AUTO 3 % (21-46); MONOCYTES ABSOLUTE AUTO 0.22 K/mm3 (0.16-1.47); MONOCYTES PERCENT AUTO 6 % (4-13); Mean Corpuscular HGB 34.8 pg (26.0-34.0); Mean Corpuscular Volume 94 fL (80-100); Mean Platelet Volume 11.8 fL (9.1-12.4); NEUTROPHILS ABSOLUTE AUTO 3.23 K/mm3 (1.96-9.15); NEUTROPHILS PERCENT AUTO 85 % (41-73); Platelet Count 78 K/mm3 (150-400); RDW Coefficient Variation 12.1 % (11.7-14.2); RDW Standard Deviation 42.5 fL (35.1-46.3); Red Blood Cell Count 3.28 M/mm3 (4.30-5.90); White Blood Cell Count 3.81 K/mm3 (4.00-11.30)
[2020-12-21 11:44] LABS: Albumin, Blood 1.6 g/dL (3.4-5.0); Anion Gap 7 mmol/L (6-16); Blood Urea Nitrogen 51 mg/dL (8-24); Bun/Creatinine Ratio 48.6 (12.0-20.0); CO2, Blood 20 mmol/L (21-32); Chloride, Blood 100 mmol/L (98-108); Creatinine, Blood 1.05 mg/dL (0.60-1.20); Glomerular Filtration Rate >60 (60-); Glucose, Blood 296 mg/dL (70-99); Phosphorus, Blood 2.5 mg/dL (2.5-4.9); Potassium, Blood 4.1 mmol/L (3.5-5.5); Sodium, Blood 127 mmol/L (136-145)
[2020-12-21 11:49] LABS: Calcium, Blood 6.1 mg/dL (8.5-10.1)
--- NOTE | 2020-12-21 12:30 | NUR ---
Update- Provider visit Dr. Christie made aware of NA [id number]. New orders recieved, see emar. Attempted to decrease patients sedation this morning but pt with coughing spells and not tolerating decreased sedation. Dr. Christie would like to wait on sedation vacation.
--- NOTE | 2020-12-21 14:24 | NUR ---
Cuff leak Pt turned to have suppository placed. Pt appears to have a cuff leak, RT at bedside. Tube adjusted and cuff reinflated. Per Dr. Christie if pt continues to have cuff leak, CXR to be completed. VSS. SPO2 > 90%.
--- NOTE | 2020-12-21 17:36 | NUR ---
Shift Summary Vent settings: AC 18/500/12/40%, lungs wheezing to clear. Propofol 50 mcg/kg/min and Precedex 0.6 mcg/kg/hr, infusing via PICC to MYRIAM. Pt responds to noxious stumli, grimace during oral care and cough. VHP @ goal of 15 ml/hr, residual of 100 and 80. Temp andrade in place, 1000 yellow seidment urine. T-max 102.3, current temp: 99.5. SWB in place. VSS. NSR.
--- NOTE | 2020-12-21 21:44 | NUR ---
ASSUMED CARE AT 1900 PT LAYING IN BED INTUBATED WITH VENT SETTINGS AC 18, TV 500, PEEP 12, FIO2 30%; PT DESATURATES WHEN REPOSITIONED AND DURING COUGHING SPELLS, FIO2 INCREASED TO 45% AND PRN GUAIFENESIN GIVEN. MILD REACTION TO PAINFUL STIMULI, GAG WEAK, COUGH STRONGER THAN PREVIOUS DAY BUT STILL WEAK; PUPILS PERRLA. AFEBRILE. HR 60'S. SBP 100-120. ABD STILL SEVERELY DISTENDED, SOFT TO PALPATE, HYPOACTIVE BT; VHP INFUSING VIA OG AT 15ML/HR (GOAL) WITH 30ML WATER FLUSHES Q4HR; MINIMAL RESIDUALS NOTED. SEO PATENT AND DRAINING TO GRAVITY YELLOW/SEDIMENT URINE. PROPOFOL INFUSING AT 50MCG/KG/MIN. PRECEDEX INFUSING AT 0.6MCG/KG/HR. SEE SHIFT ASSESSMENT FOR FULL ASSESSMENT.
--- NOTE | 2020-12-22 04:37 | NUR ---
PT CHANGE ASSISTED WITH CARES D/T PT COUGHING AND NOT TOLERATING VENT. MEDICATED WITH 50MCG OF FENTANYL, WELL WITH MUCINEX WITH CODEINE. PT NOTED TO BE VERY LABILE WITH HIS OXYGEN SATURATIONS, WHICH WERE NOTED TO BE LOW 83%. FIO2 WAS THEN INCREASED TO 100% WITH PEEP AT 12. OXYGEN SATURATIONS NOTED TO FLUCTUATE BACK AND FORTH ANYWHERE FROM 85%-97%. DR. DELANEY CONTACTED REGARDING THESE LABILE SATURATIONS, WELL ELEVATED D-DIMER RESULTS FROM 12/18/20, WHICH WAS NOTED TO BE 16. NEW ORDERS FOR CT TO RULE OUT PULMONARY EMBOLISM, WELL TO INCREASE PEEP TO 16 NEEDED. TOOL AND CUTTER GRINDER NOTIFIED AND RT NOTIFIED. PRIMARY NURSE TO TRANSPORT.
--- NOTE | 2020-12-22 07:14 | NUR ---
END OF SHIFT SUMMARY PT CONT TO BE INTUBATED WITH MORE SUPPORT NEEDED, VENT SETTINGS NOW AC 18, TV 500, PEEP 15, FIO2 90%; AT 0400 REASSESSMENT PT DESATURATED WITH ANY CARE PROVIDED INCLUDING ORAL CARE AND REPOSITIONING, PT SLOWLY RECOVERED WITH FIO2 100%; SEE RUBÉN MENDES NOTE FOR INFO ON CT RATIONAL. TEMP INCREASING TO 101.8; PRN TYLENOL GIVEN AND FAN PROVIDED. HR 60-70'S. SBP 100-120. VHP INFUSING VIA OG AT 15ML/HR WITH 30ML WATER FLUSHES Q4HR; MINIMAL RESIDUALS NOTED. TEMP SEO IN PLACE AND DRAINING TO GRAVITY. PICC TO MYRIAM INFUSING. PROPOFOL INFUSING AT 50MCG/KG/MIN. PRECEDEX INFUSING AT 0.6MCG/KG/HR. REPORT GIVEN TO LEONEL MENDES.
--- NOTE | 2020-12-22 08:49 | NUR ---
CARE ASSUMED ASSESSMENTS COMPLETED, PT REMAINS INTUBATED, AC 18, Vt 500, PEEP 15, FIO2 55%, SPO2 97%, RR 25-32. LS CLEAR, PT PREMEDICATED WITH FENTANYL AND THEN POSITIONED, NO DESAT. PROPOFOL 50MCG, PRECEDEX 0.6MCG, PT GRIMACES AND TURNS AWAY FROM ORAL CARE BUT DOES NOT OPEN EYES, TRACK, OR MOVE EXTREMS. HR SINUS 80'S, MAP STABLE. ABD DISTENDED, FIRM, BT HYPOACTIVE. VITAL HP AT 15ML/HR, RESIDUAL 20ML. SEO SECURED, PATENT AND DRAINING TO GRAVITY, SMALL AMOUNT OF EXTREM AND SCLERAL EDEMA NOTED. PT'S TEMP 102.2 DESPITE TYLENOL ON NOC SHIFT, ICE PACKS PLACED TO NECK, GROIN, AND UNDER ARMS. TEMP CURRENTLY DOWN TO 101.8
[2020-12-22 10:03] LABS: Albumin, Blood 1.8 g/dL (3.4-5.0); Anion Gap 6 mmol/L (6-16); Blood Urea Nitrogen 57 mg/dL (8-24); Bun/Creatinine Ratio 47.5 (12.0-20.0); CO2, Blood 22 mmol/L (21-32); Chloride, Blood 107 mmol/L (98-108); Glomerular Filtration Rate >60 (60-); Glucose, Blood 225 mg/dL (70-99); Potassium, Blood 4.4 mmol/L (3.5-5.5); Sodium, Blood 135 mmol/L (136-145)
[2020-12-22 10:04] LABS: Calcium, Blood 8.2 mg/dL (8.5-10.1)
--- NOTE | 2020-12-22 12:30 | NUR ---
UPDATE LS REMAIN CLEAR, SCANT ETT SECRETIONS PRESENT. FIO2 DECREASED TO 45%, SPO2 94%, RR MID 20'S. HR AND BP STABLE, TEMP 99.7 AT THIS TIME, ICE OFF, FAN ON. ABD REMAINS DISTENDED AND FIRM, NO BM'S YET THIS SHIFT. RESIDUALS REMAIN MINIMAL. DR. DELANEY IN TO ASSESS, ALBUMIN AND PROTONIX ADMINISTERED PER ORDERS.
--- NOTE | 2020-12-22 19:07 | NUR ---
END OF SHIFT PT HAD FAIRLY UNEVENTFUL DAY, WAS ABLE TO DECREASE FIO2 TO 35% AND PEEP TO 12, SPO2 92%, RR 20'S, LS REMAIN CLEAR, DIMINIMSIHED, SCANT SECRETIONS FROM ETT. HR DECREASED TO 50'S SINUS, BP STABLE, NO CHANGE IN DRIPS. NO SEDATION VACATION TODAY D/T REPORT OF DIFFICULTY RECOVERING SPO2 AFTER COUGHING SPELLS WHEN PT AGITATED. MENTAL STATUS UNCHANGED TODAY, NO MOVMENT OF EXTREMS OR EYE OPENING NOTED. PT AFEBRILE ALL AFTERNOON. ABD REMAINS GROSSLY DISTENDED, FIRM, BT HYPOACTIVE AND TYMPANIC, NO BM TODAY. PT'S SON YARI UPDATED, DAUGHTER KEIKO AT BEDSIDE TO VISIT WITH PT, UPDATED ON STATUS. REPORT TO ONCOMING SHIFT.
--- NOTE | 2020-12-23 00:05 | NUR ---
ASSUMED CARE AT 1900 PT INTUBATED WITH VENT SETTINGS AC 18, TV 500, PEEP 12, FIO2 35%; SCANT AMOUNT OF SECREATIONS NOTED. PT REACTIVE TO ORAL CARE AND REPOSITIONING WITH GRIMICING; PT NOT FOLLOWING DIRECTIONS; GAG AND COUGH PRESENT BUT WEAK. AFEBRILE. HR 50-60'S. SBP 130-140. VHP INFUSING VIA OG AT 15ML/HR (GOAL) WITH 30ML WATER FLUSHES Q4HR; MINIMAL RESIDUALS NOTED. SEO IN PLACE AND YELLOW/SEDIMENT OUTPUT. PROPOFOL INFUSING AT 50MCG/KG/MIN. PRECEDEX INFUSING AT 0.6MCG/KG/HR. SEE SHIFT ASSESSMENT FOR FULL ASSESSMENT.
--- NOTE | 2020-12-23 03:30 | NUR ---
CALL TO DR. DELANEY OXYGEN SATURATIONS CONTINUE TO DROP AND MAINTAIN IN THE MID 70'S DESPITE PEEP 12 AND FIO2 100%. RT CALLED TO ROOM TO INCREASE PEEP. NEW ORDERS TO START FENTANYL GTT; START AT 25MCG/HR AND INCREASE TO 300MCG/HR NEEDED.
--- NOTE | 2020-12-23 04:32 | NUR ---
UPDATE PT HAS HAD SEVERAL EPISODES OF DESATRUATING INTO THE LOW 70'S DUE TO EITHER COUGHING, OR INTO THE 80'S WITH ORAL CARE OR REPOSITIONING. PT RECOVERS IN 2-4MIN ON FIO2 100%; PRN'S GIVEN TO ASSIST IN WITH SEDATION AND COUGHING. THE COUGHING EPISODE AT 0345 DROPPED O2 SATURATION TO 64%; RT IN ROOM TO ADJUST VENT SETTINGS, PEEP INCREASED TO 15 AND THAN TITRATED DOWN TO 14; FIO2 100% FOR 5MIN, THE TIME FOR PT TO RECOVER. DR DELANEY NOTIFED AND PROVIDED NEW ORDERS FOR FENTANYL SUPERVISOR COKE HANDLING.
[2020-12-23 04:47] LABS: BASOPHILS ABSOLUTE AUTO 0.01 K/mm3 (0.00-0.23); BASOPHILS PERCENT AUTO 0 % (0-2); EOSINOPHILS ABSOLUTE AUTO 0.19 K/mm3 (0.00-0.68); EOSINOPHILS PERCENT AUTO 4 % (0-6); Hematocrit 30.5 % (37.0-53.0); Hemoglobin 10.4 g/dL (13.5-17.5); IMMATURE GRAN ABSOLUTE AUTO 0.05 K/mm3 (0.00-0.10); IMMATURE GRAN PERCENT AUTO 1 % (0-1); LYMPHOCYTES ABSOLUTE AUTO 0.47 K/mm3 (0.84-5.20); LYMPHOCYTES PERCENT AUTO 11 % (21-46); MONOCYTES ABSOLUTE AUTO 0.24 K/mm3 (0.16-1.47); MONOCYTES PERCENT AUTO 6 % (4-13); Mean Corpuscular HGB 31.9 pg (26.0-34.0); Mean Corpuscular HGB Conc 34.1 g/dL (31.5-36.5); Mean Corpuscular Volume 94 fL (80-100); Mean Platelet Volume 11.6 fL (9.1-12.4); NEUTROPHILS ABSOLUTE AUTO 3.42 K/mm3 (1.96-9.15); NEUTROPHILS PERCENT AUTO 78 % (41-73); Platelet Count 115 K/mm3 (150-400); RDW Coefficient Variation 12.4 % (11.7-14.2); RDW Standard Deviation 43.2 fL (35.1-46.3); Red Blood Cell Count 3.26 M/mm3 (4.30-5.90); White Blood Cell Count 4.38 K/mm3 (4.00-11.30)
[2020-12-23 05:03] LABS: Anion Gap 8 mmol/L (6-16); Blood Urea Nitrogen 49 mg/dL (8-24); Bun/Creatinine Ratio 46.7 (12.0-20.0); CO2, Blood 23 mmol/L (21-32); Calcium, Blood 7.9 mg/dL (8.5-10.1); Chloride, Blood 108 mmol/L (98-108); Creatinine, Blood 1.05 mg/dL (0.60-1.20); Glomerular Filtration Rate >60 (60-); Glucose, Blood 173 mg/dL (70-99); Phosphorus, Blood 2.6 mg/dL (2.5-4.9); Sodium, Blood 139 mmol/L (136-145)
--- NOTE | 2020-12-23 05:39 | NUR ---
CALL TO MD CALL TO DR DELANEY REGARDING SEDATION(PROPOFOL AT 60 MCQ/KG/MIN, FENTANYL 100 MCQ/HR, AND PRECEDEX 0.6 MCQ/KG/MIN) AND RESP RATE IN THE MID TO HIGH 30'S. BIS MONITOR AT 98. RECEIVED ORDER FOR VERSED GTT.
--- NOTE | 2020-12-23 06:18 | NUR ---
UPDATE PT CONT TO HAVE EPISODES OF DESATURATING DURING COUGHING OR WITHOUT STIMULI WITH PROPOFOL AT 50MCG/KG/HR, PRECEDEX AT 0.6MCG/KG/MIN, PRN FENTANYL PUSHES, PRN GUAIFENESIN, AND PEEP AT 14. DR DELANEY CONTACTED AND NEW ORDERS FOR FENTNYL FULL SERVICE VENDING DRIVER PROVIDED AND STARTED WITH CONT RATE OF 50MCG/HR. PT CONT TO HAVE FREQUENT EPISODES OF DESATURATING WITHOUT STIMULATION, FULL SERVICE VENDING DRIVER FENTANYL TITRATED UP TO 100MCG/HR. BIS MONITOR PLACED TO CHECK SEDATION LEVEL AND READ IN THE 80-90 WITH THE GTTS ABOVE. DR DELANEY CONTACTED AGAIN WITH NEW INFORMATION ABOUT BIS AND NEW ORDERS PROVIDED TO START VERSED GTT, STOP PRECEDEX, AND OK TO TITRATE FENTANYL UP TO 300MCG/HR. VENT SETTINGS AC 18, TV 500, PEEP 14, FIO2 60%, SPO2 92-96%.
--- NOTE | 2020-12-23 07:29 | NUR ---
END OF SHIFT SUMMARY PT CONT TO BE INTUBATED WITH VENT SETTINGS AC 18, TV 500, PEEP 14, FIO2 60%; SCANT AMOUNT OF SECREATIONS NOTED; SEE PREVIOUS NOTES ABOUT EVENTS OVER NIGHT. DURING AM BLOOD DRAW, PROPOFOL AND PRECEDEX TEMPORARILY PAUSED AND PT BECAME MORE ALERT AND FOLLOWED MINIMAL DIRECTIONS OF SQUEEZING HANDS. TEMP INCREASED AT THE END OF THE SHIFT UP TO 101.1. HR 50-100. SBP 110-160. VHP INFUSING AT 15ML/HR (GOAL) WITH 30ML WATER FLUSHES Q4HR; MINIMAL SECREATIONS NOTED. SEO IN PLACE AND DRAINING TO GRAVITY. PROPOFOL INFUSING AT 60MCG/KG/MIN; VERSED AT 2MG/HR. FENTANYL GTT INFUSING AT 100MCG/HR. PRECEDEX ON SB. REPORT GIVEN TO LEONEL MENDES.
--- NOTE | 2020-12-23 08:48 | NUR ---
CARE ASSUMED ASSESSMENTS COMPLETED, PT AGITATED, RR 30'S, SPO2 85-90%, HR AND BP ELEVATED, BIS MONITOR 90'S. PT MEDICATED WITH ATIVAN AND FENTANYL IVP, RR SLOWED TO 20'S, SPO2 97% AFTER SUCTIONING AND REPOSITIONING, BIS 40'S. HR REMAINS 105, BP IMPROVING. PT SEDATED WITH PROPOFOL 60MCG, FENTANYL 100MCG/HR, AND VERSED 2MG/HR, DOES NOT OPEN EYES OR FOLLOW COMMANDS. FAINT EXP WHEEZE NOTED IN L BASE, LS CLEAR IN OTHER LOBES. SCANT WHITE SECRETIONS. ABD REMAINS GROSSLY DISTENDED, FIRM, HYPOACTIVE BT. TF AT 15ML/HR. PLAN FOR DULCOLAX SUPPOSITORY TODAY. PT'S TEMP ELEVATED, CURRENTLY 103.6 AFTER TYLENOL, ICE PACKING, AND FAN, WILL ADMINISTER IBUPROFEN AND PLACE COOLING BLANKET IF IBUPROFEN NOT EFFECTIVE.
--- NOTE | 2020-12-23 10:57 | NUR ---
UPDATE DR. MCNULTY IN TO ASSESS, AWARE OF TEMP, BC DRAWN, IBU ADMINISTERED. TEMP HAS NOW DECREASED TO 102.0. VERSED DC'D PER DR. MCNULTY, PRECEDEX RESUMED. SHORTLY AFTER TRANSITION TO PRECEDEX, BP BECAME HYPOTENSIVE. PRECEDEX OFF, PROPOFOL DECREASED TO 30MCG, FENTANYL RESUMED AT 100MCG. BP 67/49, DR. ONEAL, AWAITING LEVO FROM PHARMACY. ETT CUFF LEAKING, DR. ONEAL. VENT CURRENTLY AC 18, Vt 500, PEEP 14, FIO2 40%. TF DECREASED TO 10ML/HR PER DIETARY ORDERS.
--- NOTE | 2020-12-23 17:14 | NUR ---
UPDATE ATTEMPTED TO REPOSITION PT, PT BECAME HYPOXIC, SPO2 60'S-70'S. PT LEFT ON BACK AND POSITIONED TO HIGH FOWLERS, INCREASED FIO2 TO 50% AND SUCTIONED ETT, SPO2 RECOVERED AFTER ABOUT 3-5 MINUTES. LEVOPHED REMAINS ON AT 2MCG, BP STABLE, HR 80'S SINUS. PT REMAINS SEDATED WITH PROPOFOL 30MCG AND FENTANYL 100MCG/HR. DAUGHTER AT BEDSIDE, GIVEN UPDATE.
--- NOTE | 2020-12-23 19:12 | NUR ---
END OF SHIFT PT GIVEN DULCOLAX SUPPOSITORY FOR ABD DISTENTION/CONSTIPATION, NO BM THIS SHIFT. ABD DISTENDED, FIRM, BT HYPOACTIVE AND TYMPANIC. TF STOPPED X2 HOURS, OGT PLACED TO LIWS, NO APPARENT DECREASE IN DISTENTION. TF RESUMED AT 10ML/HR, ORDER FOR REGLAN RECEIVED. PT REMAINED SENSITIVE TO REPOSITIONING, BECAME HYPOXIC WITH MOVEMENT, RECOVERED SPO2 WHEN GIVEN BRIEF FIO2 OF 100%. VENT SETTINGS CURRENTLY AC 18, Vt 500, PEEP 14, FIO2 40%, SPO2 MID 90'S, RR 18-22, UNLABORED. LS DIMINISHED WITH SLIGHT COARSE SOUNDS IN LLL, SECRETIONS REMAIN SCANT. BP STABLE WITH LEVOPHED, HR 80'S SINUS. LEVOPHED 2MCG, FENTANYL 100MCG/HR, PROPOFOL 30MCG. NO SEDATION VACATION TODAY D/T SEVERE AGITATION AND SPO2 DESAT WITH CHANGES IN SEDATION AND ACTIVITY. REPORT TO ONCOMING SHIFT.
--- NOTE | 2020-12-23 20:00 | NUR ---
ASSUMED CARE OF PATIENT AT 1900, TUBE FEEDING INFUSING AT 10ML/HR, FENTANYL @ 100MG/HR, LEVOPHED 22MCG/MIN, PROPOFOL AT 30MCG/KG/ ON VENTILATOR 18/500/14/40%. ABDOMEN LARGE, DISTENDED W/ TYMPANIC SOUNDS, RESIDUAL <10ML. SEO DRAINING TO GRAVITY DRAINAGE W/ OSMAN COLORED RETURN.
--- NOTE | 2020-12-23 20:30 | NUR ---
PT HAD EPISODE OF DESATURATION, PT GIVEN 100% FIO2 WITH DELAYED INCREASE IN SATS. HIS FIO2 PUT UP TO 50%. NO RETURN ON ET SUCTIONING AT THIS TIME.
--- NOTE | 2020-12-23 22:00 | NUR ---
PT TOLERATED TURN AND BOOST IN BED WITHOUT DESATURATION, REMAINS ON 50% FIO2.
--- NOTE | 2020-12-24 03:52 | NUR ---
PT BEGAN DESAT INTO THE 'S, CAME IN, SUCTIONED, REPOSITIONED, CALLED RT STANLEY. REPOSITIONED, CHECKED BALLOON, CALLED . TIDAL VOLUMES OK AND SATS OK RIGHT NOW, BUT CUFF NOT HOLDING AIR, SOUNDS LIKE AIR LEAK.
[2020-12-24 04:57] LABS: BASOPHILS ABSOLUTE AUTO 0.01 K/mm3 (0.00-0.23); BASOPHILS PERCENT AUTO 0 % (0-2); EOSINOPHILS ABSOLUTE AUTO 0.14 K/mm3 (0.00-0.68); EOSINOPHILS PERCENT AUTO 3 % (0-6); Hematocrit 33.4 % (37.0-53.0); Hemoglobin 11.1 g/dL (13.5-17.5); IMMATURE GRAN ABSOLUTE AUTO 0.06 K/mm3 (0.00-0.10); IMMATURE GRAN PERCENT AUTO 1 % (0-1); LYMPHOCYTES ABSOLUTE AUTO 0.34 K/mm3 (0.84-5.20); LYMPHOCYTES PERCENT AUTO 7 % (21-46); MONOCYTES ABSOLUTE AUTO 0.33 K/mm3 (0.16-1.47); MONOCYTES PERCENT AUTO 7 % (4-13); Mean Corpuscular HGB 31.4 pg (26.0-34.0); Mean Corpuscular HGB Conc 33.2 g/dL (31.5-36.5); Mean Corpuscular Volume 95 fL (80-100); Mean Platelet Volume 11.1 fL (9.1-12.4); NEUTROPHILS ABSOLUTE AUTO 4.01 K/mm3 (1.96-9.15); NEUTROPHILS PERCENT AUTO 82 % (41-73); Platelet Count 135 K/mm3 (150-400); RDW Coefficient Variation 13.1 % (11.7-14.2); Red Blood Cell Count 3.53 M/mm3 (4.30-5.90); White Blood Cell Count 4.89 K/mm3 (4.00-11.30)
[2020-12-24 05:21] LABS: Bun/Creatinine Ratio 47.1 (12.0-20.0); Calcium, Blood 8.1 mg/dL (8.5-10.1); Creatinine, Blood 1.38 mg/dL (0.60-1.20); Potassium, Blood 4.2 mmol/L (3.5-5.5)
--- NOTE | 2020-12-24 05:40 | NUR ---
LATE ENTRY: CAME TO EXCHANGE PT'S ETT. ETOMIDATE 15MG GIVEN AT 0418, SUCCS 150MG GIVEN @ 0419, LEVOPHED UP TO 10MCG/MIN. USED THE GLIDESCOPE TO VIEW THE PRESENT ETT, PLACED THE BOUGIE, REMOVED THE TUBE AND REPLACED IT WITH AN 8.0, 26 AT THE LIPS. PT TOLERATED PROCEDURE WELL, NEEDED BAGGING BRIEFLY POST TUBE EXCHANGE, DRIPS RETURNED TO RATES NOTED IN FLOWSHEET.
--- NOTE | 2020-12-24 05:43 | NUR ---
PT HAD SMALL TO MEDIUM SIZED BOWEL MOVEMENT, BROWN LIQUID IN COLOR WITH JELLY FORMED SUBSTANCE, CLEANED AND REPOSITIONED, TOLERATED WELL.
--- NOTE | 2020-12-24 06:23 | NUR ---
SUHA DID WELL FOR MOST OF THE SHIFT, HE CONTINUED TO HAVE A SMALL LEAK UNTIL AROUND 0300, THEN HE CONTINUED COUGHING THE LEAK GREW LOUDER AND HE WAS MORE UNCOMFORTABLE. ATTEMPTS TO MEDICATE TO HELP HIM TOLERATE DID NOT IMPROVE THE SITUATION. HIS ETT WAS CHANGED OUT, SEE NOTE. HE CONTINUES ON FENTANYL DEFLASH AND WASH OPERATOR @ 100MCG/HR, NOREPINEPHRINE @ 6 MCG/KG/MIN, PROPOFOL @ 25MCG/KG/MIN, PRECEDEX @ 0.4 MCG/KG/HR. VENTILATOR [id number]/500/15/50%. HE WAS ABLE TO HAVE A SMALL BM THIS AM. AM LABS IMPROVING OVERALL. TUBE FEEDING CONTINUES AT 10ML/HR.
--- NOTE | 2020-12-24 08:00 | NUR ---
ASSUMED CARE REPORT RECIEVED. PT IS LAYING IN BED INTUBATED AND SEDATED. VENT SETTINGS AC 18, TV 500, PEEP 14, FIO2 40%. PT SEDATED WITH PROPOFOL AT 30 MCG/KG/MIN, PRECEDEX 0.4 MCG/KG/HR, AND FENTANYL MANAGER WASTEWATER 100 MCG/HR. PICC TO MYRIAM C/D/I. NS INFUSING TKO. LEVOPHED INFUSING AT 6 MCG/MIN. VITAL SIGNS STABLE. SBP 90-100'S. OGT IN PLACE WITH TF AT 10 ML/HR GOAL RATE. SEO TEMP PROBE IN PLACE WITH MINIMAL AMOUNT OF DARK YELLOW URINE OUTPUT NOTED. SBW RESTRAINTS IN PLACE. PT WITH GRIMMACE TO NOXIOUS STIMULI AND ORAL CARE. PT WITH MINIMAL EXTREMITY MOVEMENT TO NOXIOUS STIMULI. WILL CONTINUE TO MONITOR.
--- NOTE | 2020-12-24 17:53 | NUR ---
SHIFT SUMMARY NO ACUTE CHANGES THIS SHIFT. PT REMAINS INTUBATED AND SEDATED. VENT SETTINGS TITRATED DOWN TO AC 18, TV 500, PEEP 12, FIO2 40%. PT SPO2 STABLE WITH PT AT REST. SPO2 DROPS WITH PROLONGED RECOVERY WITH ANY TURNS/CARE ACTIVITIES. OGT REMAINS IN PLACE WITH TF AT 20 ML/HR GOAL RATE. PICC TO MYRIAM REMAINS C/D/I. LEVOPHED INFUSING AT 1 MCG/MIN. BP HAS BEEN LABILE WHEN ATTEMPTING TO TITRATE LEVOPHED OFF. PROPOFOL REMAINS AT 30 MCG/KG/MIN, PRECEDEX 0.4 MCG/KG/HR, NS INFUSING TKO. SEO TEMP PROBE REMAINS IN PLACE WITH CLEAR YELLOW URINE OUTPUT NOTED. SBW RESTRAINTS REMAIN IN PLACE. PT CONTINUES TO FURROW BROW AND GRIMMACE TO ORAL CARE/NOXIOUS STIMULI. FENTANLY PATIENT RELATIONS MANAGER INFUSING AT 100 MCG/HR. PT SON AT BEDSIDE THIS AFTERNOON. EXTENSIVE DISCUSSION BETWEEN [facility] [place] AND PALLIATIVE CARE THIS SHIFT. PT MADE DNR STATUS THIS SHIFT. WILL CONTINUE TO MONITOR AND REPORT OFF TO ONCOMING RN.
--- NOTE | 2020-12-24 20:00 | NUR ---
ASSUMED CARE OF PT AT 1915. REPORT RECEIVED. PT PRESENTS IN BED INTUBATED. VENT: AC 18, Tv 500, FIO2 40 PERCENT, PEEP 12. PT ADEQUATELY SEDATED WITH PROPOFOL AT 30 MCG'S/KG/MIN AND PRECEDEX 0.4 MCG'S/KG/HOUR. FENTANYL CLOTHES PRESSER AT 100 MCG'S PER HOUR. LEVOPHED AT 1 MCG/MIN. MAP REMAINS > 65. SATURATIONS REMAIN > 90 PERCENT. NO RETURN FROM ETT WITH SUCTIONING. WILL REVIEW CHART AND PLAN OF CARE FOR THIS PT.
--- NOTE | 2020-12-24 23:30 | NUR ---
HAVE BEEN ABLE TO TURN OFF LEVOPHED DRIP. PT MAINTAINS BLOOD PRESSURES ADEQUATELY. MAP REMAINS > 65. PT HAS HAD EPISODES OF DESATURATION WITH ANY TURNS. NEEDING TO INCREASE FIO2 UNTIL RECOVERED. WILL CONTINUE TO MONITOR.
[2020-12-25 04:47] LABS: BASOPHILS PERCENT AUTO 0 % (0-2); EOSINOPHILS ABSOLUTE AUTO 0.09 K/mm3 (0.00-0.68); EOSINOPHILS PERCENT AUTO 3 % (0-6); Hematocrit 31.1 % (37.0-53.0); Hemoglobin 10.2 g/dL (13.5-17.5); IMMATURE GRAN ABSOLUTE AUTO 0.04 K/mm3 (0.00-0.10); IMMATURE GRAN PERCENT AUTO 1 % (0-1); LYMPHOCYTES ABSOLUTE AUTO 0.34 K/mm3 (0.84-5.20); LYMPHOCYTES PERCENT AUTO 10 % (21-46); MONOCYTES ABSOLUTE AUTO 0.21 K/mm3 (0.16-1.47); MONOCYTES PERCENT AUTO 6 % (4-13); Mean Corpuscular HGB 31.5 pg (26.0-34.0); Mean Corpuscular HGB Conc 32.8 g/dL (31.5-36.5); Mean Corpuscular Volume 96 fL (80-100); Mean Platelet Volume 11.1 fL (9.1-12.4); NEUTROPHILS ABSOLUTE AUTO 2.72 K/mm3 (1.96-9.15); NEUTROPHILS PERCENT AUTO 80 % (41-73); Platelet Count 124 K/mm3 (150-400); RDW Coefficient Variation 12.9 % (11.7-14.2); RDW Standard Deviation 46.4 fL (35.1-46.3); Red Blood Cell Count 3.24 M/mm3 (4.30-5.90)
--- NOTE | 2020-12-25 05:01 | NUR ---
SEDATION VACATION DONE THIS DECATING MACHINE OPERATOR. PT OPENS EYES SPONTANEOUSLY. DOES NOT FOLLOW ANY COMMANDS. STRAIGHT FORWARD GAZE. NOTHING NOTED THAT IS PURPOSEFUL. HAVE NEEDED TO INCREASE FIO2 UP TO 60 PERCENT. PROPOFOL UP TO 40 MCG'S. PT HAS HAD DESATURATIONS THIS NIGHT. HAS MAINTAINED BLOOD PRESSURES WITHOUT LEVOPHED SUPPORT. MEDICATED PT WITH GUIAFFENESIN FOR COUGH, AND ATIVAN FOR VENT TOLERANCE. GOOD RESULTS NOTED. WILL CONTINUE TO MONITOR PT, AND WILL REPORT OFF TO ONCOMING RN.
[2020-12-25 05:04] LABS: Alanine Aminotransfer (ALT/SGP 65 U/L (12-78); Albumin, Blood 1.7 g/dL (3.4-5.0); Albumin/Globulin Ratio 0.4 (0.8-1.8); Alk Phos 87 U/L (50-136); Anion Gap 7 mmol/L (6-16); Aspartate Aminotrans (AST/SGOT 57 U/L (12-37); Bilirubin, Total 0.5 mg/dL (0.1-1.0); Blood Urea Nitrogen 56 mg/dL (8-24); Bun/Creatinine Ratio 47.5 (12.0-20.0); CO2, Blood 23 mmol/L (21-32); Calcium, Blood 8.2 mg/dL (8.5-10.1); Chloride, Blood 110 mmol/L (98-108); Creatinine, Blood 1.18 mg/dL (0.60-1.20); Globulin, Blood 3.9 g/dL (2.2-4.0); Glomerular Filtration Rate >60 (60-); Glucose, Blood 123 mg/dL (70-99); Magnesium, Blood 2.3 mg/dL (1.6-2.4); Phosphorus, Blood 2.6 mg/dL (2.5-4.9); Potassium, Blood 3.8 mmol/L (3.5-5.5); Sodium, Blood 140 mmol/L (136-145); Total Protein, Blood 5.6 g/dL (6.4-8.2)
--- NOTE | 2020-12-25 06:44 | NUR ---
SPOKE WITH KEIKO - DAUGHTER THIS MORNING TO GIVE HER AN UPDATE CONCERNING PT'S INCREASED OXYGEN NEEDS AND THAT PT'S HAS SPIKE A FEVER. ALLOWED FOR QUESTIONS.
--- NOTE | 2020-12-25 07:40 | NUR ---
ASSUMED CARE REPORT FROM CARMELITA MENDES AT 0700. PT INTUBATED AND SEDATED. VENT SETTINGS AC 18/500/12/60%. PROPOFOL, PRECEDEX, AND FENTANYL GTT INFUSING. PROPOFOL PLACED ON STANDBY, RR RATE INCREASED TO MID 30S. GRIMACES c CARE, DOES NOT FOLLOW COMMANDS. PROPOFOL GTT RESTARTED. COUGH/GAG/SWALLOW REFLEX PRESENT. LUNGS DIMINISHED IN BASES. SCANT SECRETIONS. ABD FIRM, DISTENDED. TUBE FEEDS AT GOAL, MINIMAL RESIDUALS. SEO PATENT, DRAINING YELLOW URINE c SEDIMENT TO GRAVITY. LEVO GTT FOR MAP>65. NSR, RATE 60'S. PICC TO RUE, DRESSING C/D/I. WILL CONTINUE TO MONITOR.
--- NOTE | 2020-12-25 11:30 | NUR ---
PRONE PT PRONED AT 1100 c ADDITIONAL STAFF.
--- NOTE | 2020-12-25 17:22 | NUR ---
SHIFT SUMMARY PT REMAIN INTUBATED AND SEDATED. PROPOFOL, PRECEDEX AND FENTANYL GTT CONTINUE. WHEN PROPOFOL ON STANDBY, PT c INCREASED RR, GRIMACES c CARE. RESTARTED SEDATION. PT PRONED AT 1100, PLAN TO PRONE FOR 12 HOURS. PRECEDEX INCREASED FOR VENT TOLERANCE. TOLERATING WELL AT THIS TIME. VENT SETTINGS AC 16/500/12/50%. LUNGS CLEAR. TUBE FEEDS INCREASED TO 30 ML/HR, GOAL 45 ML/HR. MINIMAL RESIDUALS. SEO PATENT, DRAINING YELLOW URINE c SEDIMENT TO GRAVITY. NSR, RATE 50'S. BP STABLE, LEVO ON STANDBY. WILL CONTINUE TO MONITOR UNTIL REPORT TO ONCOMING NURSE.
--- NOTE | 2020-12-25 20:00 | NUR ---
ASSUMED CARE OF PT AT 1915, REPORT RECEIVED. PT PRESENTS IN BED - PRONE SECONDARY TO COVID 19. PT TURNED TO LEFT WITH USE OF CEILING LIFT. SWIMMER'S POSITION WITH ARMS. PROMINENCES PADDED. GEL PAD UNDER HEAD AND FACE. VENT - AC 18, Tv 500, FIO2 45 %, PEEP 12. FENTANYL DRIP AT 100 MCG'S PER HOUR. PROPOFOL AT 30 MCG'S/KG/MIN, PRECEDEX AT 0.7 MCG'S/KG/HOUR. WILL REVIEW CHART AND PLAN OF CARE FOR THIS PT.
--- NOTE | 2020-12-25 23:37 | NUR ---
PT UN-PRONE AT 2300 THIS EVENING. FOUR PERSON TEAM. PT TOLERATED THIS FAIR WITH SOME DESATURATION TO MID 80'S. PT PLACED TO 100 FIO2 WHEREAS HE HAS CORRECTED BACK TO > 90 PERCENT SATURATIONS. FIO2 CURRENTLY AT 45 PERCENT. CALL RECEIVED FROM PT'S SON. UPDATE GIVEN. WILL CONTINUE TO MONITOR PT.
[2020-12-26 04:31] LABS: Hematocrit 32.8 % (37.0-53.0); Hemoglobin 10.8 g/dL (13.5-17.5); Mean Corpuscular HGB 31.4 pg (26.0-34.0); Mean Corpuscular HGB Conc 32.9 g/dL (31.5-36.5); Mean Corpuscular Volume 95 fL (80-100); Mean Platelet Volume 10.9 fL (9.1-12.4); Platelet Count 142 K/mm3 (150-400); RDW Coefficient Variation 13.1 % (11.7-14.2); RDW Standard Deviation 45.9 fL (35.1-46.3); Red Blood Cell Count 3.44 M/mm3 (4.30-5.90); White Blood Cell Count 3.34 K/mm3 (4.00-11.30)
[2020-12-26 04:47] LABS: Anion Gap 7 mmol/L (6-16); Blood Urea Nitrogen 55 mg/dL (8-24); Bun/Creatinine Ratio 50.5 (12.0-20.0); CO2, Blood 21 mmol/L (21-32); Calcium, Blood 8.3 mg/dL (8.5-10.1); Chloride, Blood 109 mmol/L (98-108); Creatinine, Blood 1.09 mg/dL (0.60-1.20); Glomerular Filtration Rate >60 (60-); Glucose, Blood 168 mg/dL (70-99); Potassium, Blood 4.2 mmol/L (3.5-5.5); Sodium, Blood 137 mmol/L (136-145)
--- NOTE | 2020-12-26 06:30 | NUR ---
PT HAS EPISODES WHERE HE HAS COUGHING JAGS THAT LEAD INTO DESATURATIONS INTO LOW 80 PERCENTS. HAVE MEDICATED PT WITH ROBITUSSIN WITH CODEINE ONCE. INCREASED SEDATION TO ASSIST WITH VENT TOLERANCE. FEVER STARTED TO SPIKE AND WAS MEDICATED WITH IBUPROFEN AND FOLLOWED WITH TYLENOL PER OGT WHEN TEMP WAS 99.5. TEMPERATURE HAS INCREASED TO 101.1 PT DOES NOT FOLLOW ANY COMMANDS WITH LIGHTENED SEDATION. WILL CONTINUE TO MONITOR PT, AND WILL REPORT OFF TO ONCOMING RN.
--- NOTE | 2020-12-26 07:40 | NUR ---
ASSUMED CARE REPORT FROM CARMELITA MENDES. PT INTUBATED AND SEDATED. VENT SETTINGS AC 18/500/12/50%. LUNGS DIMINISHED IN BASES. SCANT THIN WHITE SECRETIONS FROM ETT. COUGH/GAG/SWALLOW REFLEX PRESENT. PT OPENS EYES TO PRESSURE. DOES NOT FOLLOW COMMANDS. PROPOFOL, PRECEDEX AND FENTANYL GTT INFUSING. LEVO GTT FOR MAP >65. TUBE FEEDS AT GOAL OF 45 ML/HR, INCREASED RESIDUALS THIS AM, 200 ML. ABD DISTENDED, FIRM, HYPOACTIVE BT. NO BM NOTED. BOWEL CARE PROVIDED. SEO PATENT, DRAINING YELLOW URINE c SEDIMENT TO GRAVITY. PICC TO FELICITY, DRESSING C/D/I. PLAN TO PRONE AT 1100 FOR 12 HOURS. WILL CONTINUE TO MONITOR.
--- NOTE | 2020-12-26 11:28 | NUR ---
PRONE PT PRONED AT 1100 c ADDITIONAL STAFF. GEL PAD PLACED UNDER HEAD. ARMS PLACED IN SWIMMERS POSITION, HIPS SHIFT, PADDING TO KNEES BILATERALLY. PT TOLERATED WELL. O2 SATS 96%. PLAN TO PRONE FOR 12 HOURS.
--- NOTE | 2020-12-26 17:50 | NUR ---
SHIFT SUMMARY PT REMAINS INTUBATED AND SEDATED. VENT SETTINGS AC 18/500/10/40%. PT STILL IN PRONE POSITION. TOLERATING WELL. MINIMAL SECRETIONS THROUGH ETT. LUNGS DIM IN BASES. PROPOFOL, FENTANYL AND PRECEDEX CONTINUE FOR SEDATION. TUBE FEEDS DECREASED TO 35 ML/HR THIS SHIFT. SEO PATENT, DRAINING TO GRAVITY. LEVOPHED ON STANDBY. VSS. WILL CONTINUE TO MONITOR UNTIL REPORT TO ONCOMING NURSE.
--- NOTE | 2020-12-26 20:00 | NUR ---
ASSUMED CARE OF PT AT 1915. REPORT RECEIVED. PT PRESENTS IN BED. INTUBATED AC 18, Tv 500, FIO2 40 PERCENT, PEEP 10. PT IN PRONE POSITION. TOLERATING WELL. MAINTAINS SATURATIONS > 90 PERCENT. WILL REVIEW CHART AND PLAN OF CARE FOR THIS PT.
--- NOTE | 2020-12-26 22:00 | NUR ---
PT HAVING ISSUES WITH PERSISENT COUGH WITH SUBSEQUENT DESATURATIONS. ADMINISTERED GUIAFFENESIN WITH CODEINE. HAS ALSO BEGINNING WITH FEVER ESCALATION. ADMINISTERED TYLENOL AND IBUPROFEN. PENDING RESULTS.
--- NOTE | 2020-12-27 01:35 | NUR ---
PT UNPRONED AT APPROX 2300. FOUR PERSON TEAM. NO ISSUES TO NOTE. PT HAS HAD LESS COUGH AFTER BEING SUPINE. FENTANYL DRIP AT 100 MCG'S/HOUR. PROPOFOL AT 40 MCG'S/KG/HOUR. PRECEDEX 1.0 MCG'S/KG/HOUR. PT TOLERATING VENT FAIR TO WELL AT THIS TIME. HAVE ONLY BEEN ABLE TO SUCTION SMALL AMOUNT OF WHITE/THIN SECRETIONS FROM ETT. IS MAINTAINING > 90 PERCENT SATURATIONS.
--- NOTE | 2020-12-27 03:22 | NUR ---
PT REMAINS AFEBRILE AT THIS TIME. HAVE BEEN ABLE TO TITRATE DOWN PRECEDEX TO 0.5 MCG'S/KG/HOUR AND PROPOFOL TO 45 MCG'S/KG/MIN. OF NOTE: PT'S BLOOD PRESSURES SOMEWHAT HYOTENSIVE THOUGH IS POSITIONAL SECONDARY TO TURN TO RIGHT SIDE. LEFT ARM UP ON PILLOW WITH CUFF ABOVE HEART. WILL CONTINUE TO MONITOR PT.
[2020-12-27 04:49] LABS: BASOPHILS ABSOLUTE AUTO 0.01 K/mm3 (0.00-0.23); BASOPHILS PERCENT AUTO 0 % (0-2); EOSINOPHILS ABSOLUTE AUTO 0.21 K/mm3 (0.00-0.68); EOSINOPHILS PERCENT AUTO 6 % (0-6); Hematocrit 30.4 % (37.0-53.0); IMMATURE GRAN ABSOLUTE AUTO 0.05 K/mm3 (0.00-0.10); IMMATURE GRAN PERCENT AUTO 2 % (0-1); LYMPHOCYTES ABSOLUTE AUTO 0.28 K/mm3 (0.84-5.20); LYMPHOCYTES PERCENT AUTO 8 % (21-46); MONOCYTES ABSOLUTE AUTO 0.25 K/mm3 (0.16-1.47); MONOCYTES PERCENT AUTO 7 % (4-13); Mean Corpuscular HGB 30.8 pg (26.0-34.0); Mean Corpuscular HGB Conc 32.9 g/dL (31.5-36.5); Mean Corpuscular Volume 94 fL (80-100); Mean Platelet Volume 10.6 fL (9.1-12.4); NEUTROPHILS PERCENT AUTO 76 % (41-73); Platelet Count 142 K/mm3 (150-400); RDW Coefficient Variation 13.1 % (11.7-14.2); RDW Standard Deviation 44.9 fL (35.1-46.3); Red Blood Cell Count 3.25 M/mm3 (4.30-5.90)
[2020-12-27 05:02] LABS: Anion Gap 7 mmol/L (6-16); Blood Urea Nitrogen 52 mg/dL (8-24); Bun/Creatinine Ratio 46.4 (12.0-20.0); CO2, Blood 23 mmol/L (21-32); Chloride, Blood 109 mmol/L (98-108); Creatinine, Blood 1.12 mg/dL (0.60-1.20); Glomerular Filtration Rate >60 (60-); Glucose, Blood 181 mg/dL (70-99); Potassium, Blood 3.7 mmol/L (3.5-5.5); Sodium, Blood 139 mmol/L (136-145)
--- NOTE | 2020-12-27 08:00 | NUR ---
ASSUMED CARE REPORT RECIEVED. PT IS LAYING IN BED INTUBATED AND SEDATED. VENT SETTING AC 18, TV 500, PEEP 10, FIO2 50%. PT WITH OCCASIONAL COUGHING FITS THAT REQUIRE PROLONGED RECOVERY WITH FIO2 AT 100%. PT WITH MINIMAL ETT SECRETIONS. PT SEDATED WITH PROPOFOL AT 50 MCG/KG/MIN, PRECEDEX 0.7 MCG/KG/HR, AND FENTANYL DIRECTOR OF REHABILITATION AND WELLNESS 100 MCG/HR. PICC TO MYRIAM C/D/I. OGT IN PLACE WITH TF AT 35 ML/HR GOAL RATE, MINIMAL RESIDUALS NOTED. SEO TEMP PROBE IN PLACE WITH SMALL AMOUNT OF YELLOW OUTPUT NOTED. VITAL SIGNS STABLE. SBW RESTRAINTS IN PLACE. PT DOES NOT FOLLOW COMMANDS, BUT WITHDRAWS AND GRIMMACES TO NOXIOUS STIMULI. WILL CONTINUE TO MONITOR.
--- NOTE | 2020-12-27 11:59 | NUR ---
PRONED PT REPOSITIONED PRONE WITH RT AND MULTIPLE RN ASSISTANCE. PT FIO2 DECREASED TO 55%. VITAL SIGNS STABLE AT THIS TIME. TF PLACED ON STANDBY. ETT ADVANCED 2 CM BY RT. PT WITH COPIOUS ORAL SECRETIONS. NO ETT SECRETIONS WITH SUCTION. WILL CONTINUE TO MONITOR.
--- NOTE | 2020-12-27 18:04 | NUR ---
SHIFT SUMMARY NO ACUTE CHANGES THIS SHIFT. PT REMAINS INTUBATED AND SEDATED. PT PRONED THIS SHIFT FOR OVER 6 HOURS. PT UNPRONED THIS EVENING. PT TOLERATED WELL. VENT SETTINGS AC 18, TV 500, PEEP 10, FIO2 50%. PT WITH MINIMAL ETT SECRETIONS THIS SHIFT. OGT REMAINS IN PLACE WITH TF INFUSING AT 15 ML/HR GOAL RATE. MINIMAL RESIDUALS NOTED. PICC TO MYRIAM REMAINS C/D/I. PT SEDATED WITH PROPOFOL AT 60 MCG/KG/MIN, PRECEDEX 0.7 MCG/KG/HR, AND FENTANYL RISK INTERN 100 MCG/HR. SEO REMAINS IN PLACE WITH YELLOW URINE OUTPUT NOTED. SBW RESTRAINTS REMAIN IN PLACE. VITAL SIGNS HAVE REMAINED STABLE. PT AFEBRILE. WILL CONTINUE TO MONITOR AND REPORT OFF TO ONCOMING RN.
[2020-12-28 04:10] LABS: Hemoglobin 10.6 g/dL (13.5-17.5); Mean Corpuscular HGB 31.6 pg (26.0-34.0); Mean Corpuscular HGB Conc 34.2 g/dL (31.5-36.5); Mean Corpuscular Volume 93 fL (80-100); Mean Platelet Volume 10.4 fL (9.1-12.4); Platelet Count 145 K/mm3 (150-400); RDW Coefficient Variation 13.1 % (11.7-14.2); RDW Standard Deviation 44.1 fL (35.1-46.3); Red Blood Cell Count 3.35 M/mm3 (4.30-5.90); White Blood Cell Count 3.57 K/mm3 (4.00-11.30)
[2020-12-28 04:23] LABS: Anion Gap 5 mmol/L (6-16); Blood Urea Nitrogen 41 mg/dL (8-24); Bun/Creatinine Ratio 46.2 (12.0-20.0); CO2, Blood 22 mmol/L (21-32); Calcium, Blood 8.3 mg/dL (8.5-10.1); Chloride, Blood 110 mmol/L (98-108); Creatinine, Blood 0.89 mg/dL (0.60-1.20); Glomerular Filtration Rate >60 (60-); Glucose, Blood 115 mg/dL (70-99); Potassium, Blood 3.9 mmol/L (3.5-5.5); Sodium, Blood 137 mmol/L (136-145)
[2020-12-28 04:39] LABS: BAND PERCENT MAN 11 % (0-8); BASOPHILS ABSOLUTE MAN 0.03 K/mm3 (0.00-0.23); BASOPHILS PERCENT MAN 1 % (0-2); EOSINOPHILS ABSOLUTE MAN 0.21 K/mm3 (0.00-0.68); EOSINOPHILS PERCENT MAN 6 % (0-6); LYMPHOCYTES ABSOLUTE MAN 0.21 K/mm3 (0.84-5.20); LYMPHOCYTES PERCENT MAN 6 % (21-46); MONOCYTES ABSOLUTE MAN 0.17 K/mm3 (0.16-1.47); MONOCYTES PERCENT MAN 5 % (4-13); NEUTROPHILS ABSOLUTE MAN 2.92 K/mm3 (1.96-9.15); SEG NEUTROPHILS PERCENT MAN 71 % (41-73); TOTAL CELLS COUNTED 100
[2020-12-28 05:16] LABS: PCO2 Arterial 36.5 mmHg (35-45); PO2 Arterial 58.9 mmHg (80-100); pH Blood Arterial 7.38 (7.35-7.45)
--- NOTE | 2020-12-28 06:32 | NUR ---
PATIENT COMFORATBLE MOST OF SHIFT. PATIENT PRONED AT 2300 AND ACTUALLY HAD TO INCREASE FIO2 TO 60%. PATIENT NOT TOLERATING BEING PRONED PAST 4HRS AND HE STARTED HAVING PEAK PRESSURE IN 40-58. PATIENT SUPINED AT 0500. SEDATION INCREASED DUE TO CONTINUED HIGH VENT PRESSURES AND FREQUENT COUGHING. NO SECRETIONS SUCTIONED FROM ETT. THE ETT HAS COME OUT DISCONNECTED TWICE AND REALLY COULD USE A NEW TUBE PLACED TODAY. AT ONE POINT, TUBE BECAME DISCONNECTED AND PATIENT SATS DROPPED TO 21% BEFORE STAFF COULD GET INSIDE ROOM. PATIENT TOLERATING BEING SUPINE MUCH BETTER.
--- NOTE | 2020-12-28 10:24 | NUR ---
CHANGE IN SEDATION PER DR SORENSEN, FENTANYL CONTINUOUS TECHNICAL INSTRUCTOR COURSE DEVELOPER DECREASED TO 50 MCG/HR. PT WITH SEVERE COUGHING FIT AND SUSTAINED RR 40-50'S. PROPOFOL INCREASED TO 80 MCG/KG/MIN AND PRECEDEX 1.0 MCG/KG/HR. DR SORENSEN AWARE. PT CONTINUES WITH PEAK PRESSURES 40'S. WILL CONTINUE TO MONITOR.
--- NOTE | 2020-12-28 11:56 | NUR ---
VENT SETTING CHANGES DR SORENSEN AT BEDSIDE FOR EXTENDED PERIOD OF TIME ADJUSTING VENT SETTINGS AND SEDATION. PT INITIALLY DOING WELL WITH CHANGES TO PRESSURE CONTROL AND DECREASED SEDATION. PT WITH RR CLIMBING TO 50'S AND TV 150-200. SPO2 LOW 80'S. JANET RT AT BEDSIDE. PER DR SORENSEN PT TO BE SWITCHED BACK TO VOLUME CONTROL AND OK TO INCREASE PEEP NEEDED. PT VENT SETTINGS CURRENTLY AC 18, TV 400, PEEP 14, FIO2 100%. SPO2 92%. PROPOFOL INCREASED BACK TO 60 MCG/KG/MIN. RR REMAINS 40'S. WILL CONTINUE TO MONITOR.
--- NOTE | 2020-12-28 16:58 | NUR ---
SHIFT SUMMARY PT WITH OVERALL RESPIRATORY DECLINE THROUGHOUT THE SHIFT. DESPITE MULTIPLE DIFFERENT VENT SETTING CHANGES, PT CURRENTLY AT AC 18, TV 400, PEEP 14, FIO2 100%. VARIOUS LEVELS OF SEDATION ATTEMPTED. SEE PREVIOUS NOTES FOR MORE INFO. PT CURRENTLY SEDATED WITH PROPOFOL AT 70 MCG/KG/MIN, PRECEDEX 1.0 MCG/KG/HR. LEVOPHED INFUSING AT 2 MCG/MIN. NIMBEX STARTED THIS AFTERNOON AND TITRATED UP TO 2.5 MCG/KG/MIN. BIS MONITOR 50-70. TRAIN OF FOUR IS 1/4. PICC TO MYRIAM REMAINS C/D/I. FENTANYL STRUCTURES TECHNICIAN INFUSING AT 100 MCG/HR AND NS TKO. OGT REMAINS IN PLACE WITH TF INFUSING AT 15 ML/HR GOAL RATE. MINIMAL RESIDUALS NOTED. SEO TEMP PROBE IN PLACE WITH YELLOW OUTPUT NOTED. SBW RESTRAINTS REMAIN IN PLACE. PT DAUGHTER AT BEDSIDE THIS AFTERNOON. UPDATED DAUGHTER AND SON TO CURRENT PT CONDITION. VITAL SIGNS STABLE AT THIS TIME. WILL CONTINUE TO MONITOR AND REPORT OFF TO ONCOMING RN.
[2020-12-29 03:28] LABS: BASOPHILS ABSOLUTE AUTO 0.02 K/mm3 (0.00-0.23); BASOPHILS PERCENT AUTO 0 % (0-2); Hemoglobin 10.9 g/dL (13.5-17.5); LYMPHOCYTES ABSOLUTE AUTO 0.16 K/mm3 (0.84-5.20); LYMPHOCYTES PERCENT AUTO 2 % (21-46); MONOCYTES ABSOLUTE AUTO 0.34 K/mm3 (0.16-1.47); MONOCYTES PERCENT AUTO 5 % (4-13); Mean Corpuscular HGB 31.7 pg (26.0-34.0); Mean Corpuscular HGB Conc 32.1 g/dL (31.5-36.5); Mean Platelet Volume 10.4 fL (9.1-12.4); NRBC ABSOLUTE 0.03 K/mm3 (0.00-0.02); NRBC Auto 0.4 /100 WBC (0.0-0.2); Platelet Count 143 K/mm3 (150-400); RDW Coefficient Variation 13.7 % (11.7-14.2); RDW Standard Deviation 50.4 fL (35.1-46.3); Red Blood Cell Count 3.44 M/mm3 (4.30-5.90)
[2020-12-29 03:29] LABS: EOSINOPHILS ABSOLUTE AUTO 0.76 K/mm3 (0.00-0.68); EOSINOPHILS PERCENT AUTO 10 % (0-6); IMMATURE GRAN ABSOLUTE AUTO 0.17 K/mm3 (0.00-0.10); IMMATURE GRAN PERCENT AUTO 2 % (0-1); Mean Corpuscular Volume 99 fL (80-100); NEUTROPHILS ABSOLUTE AUTO 5.95 K/mm3 (1.96-9.15); NEUTROPHILS PERCENT AUTO 80 % (41-73)
[2020-12-29 03:43] LABS: Bun/Creatinine Ratio 32.9 (12.0-20.0); Calcium, Blood 7.8 mg/dL (8.5-10.1); Creatinine, Blood 1.67 mg/dL (0.60-1.20)
[2020-12-29 03:47] LABS: BAND PERCENT MAN 19 % (0-8); BASOPHILS PERCENT MAN 0 % (0-2); EOSINOPHILS ABSOLUTE MAN 0.29 K/mm3 (0.00-0.68); EOSINOPHILS PERCENT MAN 4 % (0-6); METAMYELOCYTE ABSOLUTE MAN 0.22 K/mm3 (0.00-0.00); METAMYELOCYTE PERCENT MAN 3 % (0-0); MONOCYTES ABSOLUTE MAN 0.22 K/mm3 (0.16-1.47); MONOCYTES PERCENT MAN 3 % (4-13); NEUTROPHILS ABSOLUTE MAN 6.66 K/mm3 (1.96-9.15); SEG NEUTROPHILS PERCENT MAN 71 % (41-73); TOTAL CELLS COUNTED 100
[2020-12-29 05:05] LABS: PCO2 Arterial 75.6 mmHg (35-45); PO2 Arterial 72.8 mmHg (80-100); pH Blood Arterial 7.03 (7.35-7.45)
--- NOTE | 2020-12-29 06:34 | NUR ---
END OF SHIFT SUMAMRY: PATIENT REMAINS INTUBATED, SEDATED, AND PARALYZED AT THIS TIME. SEDATION ADJUSTED THROUGHOUT SHIFT TO MAINTAIN COMFORT. PATIENT HAS SLOWLY GOTTEN MORE TACHY OVER SHIFT GOING FROM 90-123 AND SUSTAINING IN 120S THIS MORNING. NO ECTOPY NOTED. BP CONTINUES TO BE HYPOTENSIVE AND LEVO HAS GONE UP FROM 6 TO 16. PATINET HAD CRITICAL VALUES ON THIS MORNING'S ABG. RR ADJUSTED FROM 18 TO 24.
--- NOTE | 2020-12-29 08:30 | NUR ---
ASSUMED CARE REPORT RECIEVED. PT IS INTUBATED, SEDATED, AND PARALYZED. VENT SETTINGS AC 24, TV 400, PEEP 14, FIO2 80%. PICC TO MYRIAM C/D/I. PT SEDATED WITH PROPOFOL, PRECEDEX, AND FENTANYL SPECIAL LOAN OFFICER. PT HYPOTENSIVE, LEVOPHED GTT INCREASED TO 24 MCG/MIN. SEE FLOWSHEET FOR ALL GTT TITRATIONS. BIS 50'S, TRAIN OF FOUR IS 4/4. OGT IN PLACE WITH TF INFUSING AT 15 ML/HR. 200 ML RESIDUALS REINSTILLED. SEO TEMP PROBE IN PLACE WITH MINIMAL AMOUT OF DARK YELLOW URINE OUTPUT NOTED. SBW RESTRAINTS IN PLACE. WILL CONTINUE TO MONITOR.
[2020-12-29 08:35] LABS: Base Excess Venous -11.2 mmol/L; Bicarbonate Venous 15.5 mmol/L (24.0-30.0); PCO2 Venous 60.7 mmHg (38-42); pH Blood Venous 7.09 (7.34-7.37)
--- NOTE | 2020-12-29 12:46 | NUR ---
UPDATE DR SORENSEN UPDATED PT SON TO CURRENT PT CONDITON. LEVOPHED TITRATED UP TO 30 MCG/MIN. PT REMAINS HYPOTENSIVE WITH MAP <65, SBP 70-80'S. HR VARIES BETWEEN 70'S AND 130'S. ORDERS RECIEVED TO START EPI GTT IF PT REMAINS HYPOTENSIVE. EPI STARTED AT 2 MCG/MIN. PT HR IMMEDIATELY 150'S, SBP 140. EPI GTT PLACED ON STANDBY. HR REMAINS 140'S, SBP 110'S AT THIS TIME. PT SPO2 MID 80'S, FIO2 INCREASED TO 100%. DR SORENSEN AWARE OF CHANGES AND GTT TITRATIONS. TRAIN OF FOUR REMAINS 4/4. NO EXTREMITY MOVEMENTS NOTED. PT FURROWS BROW WITH SUCTION. PT FAMILY WISHES TO CONTINUE CURRENT CARE. WILL CONTINUE TO MONITOR.
[2020-12-29 13:55] LABS: PCO2 Arterial 53.5 mmHg (35-45); PO2 Arterial 69.7 mmHg (80-100); pH Blood Arterial 7.08 (7.35-7.45)
--- NOTE | 2020-12-29 16:32 | NUR ---
UPDATE PT CONTINUES TO HAVE DECLINE IN SPO2 AND REMAINS HYPTOENSIVE DESPITE NEOSYNEPHRINE TITRATED UP TO 200 MCG/MIN IN ADDITION TO LEVOPHED AND VASOPRESSIN. PT WITH NEW ECTOPY NOTED. DR SORENSEN NOTIFIED. ORDERS RECIEVED NOT TO FURTHER INCREASE PRESSORS. ATTEMPTED TO CONTACT PT [facility] TO UPDATE TO CURRENT CONDITION. LEFT MESSAGE ON PHONE. WILL CONTINUE TO MONITOR.
--- NOTE | 2020-12-29 18:07 | NUR ---
Pt declining and badycardic. Son notified a change and pt emeinent he agreed to comfort. pt not alone two nurses in room with him. Son gave me funneral home detatils and plans. They want to use [facility] [place]. Pt son had a good rapport with VAUGHN Arcos will have her follow up. Son may need assistance with contacting [employer] benefits will assist with getting him connected to survivors benefis if necessary.
--- NOTE | 2020-12-29 18:18 | NUR ---
TIME OF PT BEGAN TO AYAN DOWN AT 1742. THIS RN AND ANA RN AT BEDSIDE. NIMBEX GTT PLACED ON STANDBY. PT WITH NO OBTAINABLE BP AND CONTINUING TO AYAN TO 30'S. NO ESCALATION OF CARE PT DR SORENSEN ORDERS. ALBIN, PALLIATIVE CARE RN ABLE TO CONTACT PT [facility] TO NOTIFY THAT PT RAPIDLY DECLINING. YARI OK WITH COMFORT CARE. ALL PRESSORS AND GTT'S TURNED OFF AT 1752. PT BIS MONITOR SHOWS 18. PT APPEARS COMFORTABLE. PT ASYSTOLE AND NO HEART BEAT AUSCULTATED. TIME OF 1758. RT AT BEDSIDE TO EXTUBATE PT.
== END 2020-12-29 17:58 | DRG 870 ==
LOC: ER 17:42 → ICUE 19:54 → ICUW 19:54 → ICUE 20:59
PROVIDERS: Emergency Medicine; Family Medicine; Internal Medicine; Internal Medicine Critical Care Medicine; Internal Medicine Pulmonary Disease; Nurse Practitioner Acute Care; ADMIT Internal Medicine
PROC: 8E0ZXY6 Isolation (ICD-10-PCS; principal; 2020-12-13)
PROC: XW033E5 Introduction of Remdesivir Anti-infective into Peripheral Vein, Percutaneous Approach, New Technology Group 5 (ICD-10-PCS; 2020-12-13)
PROC: 3E0333Z Introduction of Anti-inflammatory into Peripheral Vein, Percutaneous Approach (ICD-10-PCS; 2020-12-13)
PROC: 5A1955Z Respiratory Ventilation, Greater than 96 Consecutive Hours (ICD-10-PCS; 2020-12-18)
PROC: 0BH17EZ Insertion of Endotracheal Airway into Trachea, Via Natural or Artificial Opening (ICD-10-PCS; 2020-12-18)
PROC: 3E033XZ Introduction of Vasopressor into Peripheral Vein, Percutaneous Approach (ICD-10-PCS; 2020-12-18)
PROC: 0BP1XDZ Removal of Intraluminal Device from Trachea, External Approach (ICD-10-PCS; 2020-12-24)
DX: A41.89 Other specified sepsis (principal); U07.1 COVID-19; J96.01 Acute respiratory failure with hypoxia; J12.82 Pneumonia due to coronavirus disease 2019; R65.21 Severe sepsis with septic shock; N17.9 Acute kidney failure, unspecified; E87.1 Hypo-osmolality and hyponatremia; C91.11 Chronic lymphocytic leukemia of B-cell type in remission; Z66 Do not resuscitate; E11.65 Type 2 diabetes mellitus with hyperglycemia; E78.5 Hyperlipidemia, unspecified; R79.1 Abnormal coagulation profile; E66.9 Obesity, unspecified; I12.9 Hypertensive chronic kidney disease with stage 1 through stage 4 chronic kidney disease, or unspecified chronic kidney disease; E11.22 Type 2 diabetes mellitus with diabetic chronic kidney disease; N18.9 Chronic kidney disease, unspecified; Z92.21 Personal history of antineoplastic chemotherapy; Z79.899 Other long term (current) drug therapy; Z79.4 Long term (current) use of insulin; Z78.1 Physical restraint status
CPT/HCPCS: 31500; 36415; 36556; 36600; 51702; 71045; 71260; 80048; 80053; 80069; 81001; 82330; 82803; 82947; 83605; 83615; 83735; 83880; 84100; 84145; 84484; 85007; 85025; 85027; 85379; 85651; 86140; 86141; 87040; 87070; 87086; 87102; 87205; 93005; 93010; 93970; 94002; 94003; 94640; 94660; 94664; 96374; 96375; 99285-25; A9270; C1751; C9113; J0171; J0330; J0456; J0692; J0696; J1100; J1650; J1720; J1815; J1940; J2060; J2250; J2370; J2543; J2704; J2765; J3010; J3370; J3465; J7030; J7040; J7050; J7060; J7070; J7120; P9046; Q9967